=== PATIENT | male | born 1955 | race Caucasian/White ===

== ENCOUNTER → 2020-12-31 | Outpatient (CLI) | payer BC ==
[~2020-12-31] MED LIST: CATHETER FLUSH 10 ML SYR IV PRN; HOLD METFORMIN - RECEIVED CONTRAST 20 ML VIAL IV SCH; IOHEXOL 350 MG/ML 100 ML (OMNIPAQUE 350) VIAL IV ONE; NS 100 ML (IVPB) BAG IV ONE
--- NOTE | 2020-12-31 10:15 | Diagnostic Imaging Report ---
PROCEDURE: CT abdomen with and without contrast. TECHNIQUE: Multiple contiguous axial CT images of the abdomen were obtained prior to and after intravenous administration of iodinated contrast. Auto Exposure Controls were utilized during the CT exam to meet ALARA standards for radiation dose reduction. INDICATION: Mass of the left upper abdominal quadrant. COMPARISON: None FINDINGS: Included portions of the lung bases show juxtapleural nodule in the posterior lateral left lower lobe that measures 1 x 0.5 cm. There is also suggestion of partially visualized subcarinal adenopathy. CT ABDOMEN: Radiopaque marker was placed in the anterior left upper abdominal quadrant in the area of palpable concern. This is shown to correspond to massive splenomegaly. Spleen measures 12.6 x 22 x 17.7 cm. No focal splenic lesions are seen. There is diffuse stranding of the mesenteric fat. Small amount of free fluid is also noted within the right pericolic gutter. Several enlarged mesenteric and retroperitoneal lymph nodes are also seen. Largest retroperitoneal lymph node is anterior to the right psoas muscle and measures 3.4 x 1.9 cm. Its margins with the IVC are heavily obscured secondary to stranding of surrounding fat. There is mass compression on the left kidney. Benign-appearing bilateral renal cysts are noted. Otherwise, kidneys have an unremarkable CT appearance. Several small cystic-appearing foci are also noted scattered throughout the liver. Adrenal glands and pancreas have a normal CT appearance. Included small bowel loops are nondistended. Cecum and appendix are not included in the [id number]. There is no loculated fluid collection or free air. Osseous structures show age-related degenerative changes, but no acute appearing abnormalities. No lytic or blastic osseous lesions are seen. IMPRESSION:. 1. Patient's palpable area of concern corresponds to marked splenomegaly. Presence of multiple additional enlarged mesenteric and retroperitoneal lymph nodes is also noted and raises strong concern for lymphoma or other underlying lymphoproliferative process. 2. Trace amount of ascites. 3. Juxtapleural nodule of the posterior lateral left lower lobe. Called and faxed to Dr. Issa Villegas at 2:12 p.m. by tracy. Dictated by: Dictated on workstation # [id number]
== END ==
LOC: RAD 07:45
PROVIDERS: ATTEND Family Medicine
DX: R19.02 Left upper quadrant abdominal swelling, mass and lump (principal); R91.1 Solitary pulmonary nodule; R59.0 Localized enlarged lymph nodes
CPT/HCPCS: 74170

== ENCOUNTER → 2021-02-22 | Outpatient (CLI) | payer BC | LOC: CARD 08:30 | DX: I34.0 Nonrheumatic mitral (valve) insufficiency (principal); I51.7 Cardiomegaly; J90 Pleural effusion, not elsewhere classified; C83.38 Diffuse large B-cell lymphoma, lymph nodes of multiple sites | CPT/HCPCS: 93306 ==

== ENCOUNTER → 2021-06-19 | Outpatient (CLI) | payer BC, OTHER | LOC: CARD 08:30 | PROVIDERS: ATTEND Internal Medicine Hematology & Oncology | DX: C83.38 Diffuse large B-cell lymphoma, lymph nodes of multiple sites (principal) | CPT/HCPCS: 93308 ==

== ENCOUNTER → 2021-08-20 | Outpatient (CLI) | payer MEDICARE, OTHER ==
--- NOTE | 2021-08-20 20:10 | Diagnostic Imaging Report ---
INDICATION: Cough EXAMINATION: Two-view chest 08/20/2021 FINDINGS: There is a right-sided chest port unremarkable in appearance. Heart is normal. Pulmonary vasculature slightly prominent. There is scattered atelectasis in the lower lungs. No infiltrates or effusions. No pneumothorax. IMPRESSION: 1. Bibasilar atelectasis versus scar. 2. Mild prominence of the perihilar regions which could be due to mild pulmonary vascular congestion versus pulmonary hypertension. Adenopathy not excluded. Dictated by: Dictated on workstation # [id number]
== END ==
LOC: RAD 15:59
PROVIDERS: ATTEND Internal Medicine Hematology & Oncology
DX: C83.38 Diffuse large B-cell lymphoma, lymph nodes of multiple sites (principal)
CPT/HCPCS: 71046

== ENCOUNTER 2023-03-21 18:19 | Inpatient (IN) | payer MEDICARE, OTHER ==
[2023-03-21] VITALS (8 sets, daily range): BP systolic 80–105; BP diastolic 53–67
[~2023-03-21] VITALS: Ht 167.7 cm; Wt 88.9 kg
--- NOTE | 2023-03-21 18:42 | ED Respiratory ---
General Chief Complaint: Respiratory Problems Stated Complaint: SOA Source: patient Exam Limitations: no limitations History of Present Illness Date Seen by Provider: Mar 21, 2023 Time Seen by Provider: 18:42 Initial Comments Patient is a 67-year-old male who presents to the emergency department chief complaint shortness of breath, increased cough productive of sputum over the last week. He had COVID about 5 weeks ago. He states his symptoms lasted about 2 weeks. About 10 days ago he started becoming symptomatic again with shortness of breath. He has a remote smoking history has not smoked in many years. He was seen at his primary care physician's office on Thursday of last week and then urgent care on Thursday. Started on double coverage antibiotics on Thursday. Has continued to have worsening shortness of breath. Presented with oxygen saturations in the upper 60s. His son who is a Rheumatology Nurse nurse states that they identified a right lower lobe pneumonia on Thursday. He does not require the use of home oxygen. He does have a history of lymphoma 4 years ago that is in remission. He also takes medication for essential tremors. He normally walks 2 to 4 miles daily and was barely able to make it to the backyard today secondary to his shortness of breath. He states that he was up and quite active throughout his COVID illness. No history of blood clot, DVT, PE. Is not currently on blood thinners. Presents with a 102 fever as well as heart rate 110-120 Timing/Duration: week, getting worse Severity: severe Prior Episodes/Possible Cause: unknown cause Modifying Factors: Worse With Activity; Improves With Oxygen, Improves With Rest Associated Symptoms: cough, fever/chills, shortness of breath Allergies and Home Medications Allergies Coded Allergies: naproxen (Verified Allergy, Unknown, 03/21/23) Patient Home Medication List Home Medication List Reviewed: Yes Propranolol HCl (Propranolol HCl) 40 Mg Tablet, 40 MG PO DAILY, (Reported) Entered as Reported by: RADHA MORALES on 03/22/23 172 Last Action: New Order Review of Systems Review of Systems Constitutional: see HPI, fever EENTM: no symptoms reported Respiratory: cough, short of breath Cardiovascular: no symptoms reported Gastrointestinal: no symptoms reported Genitourinary: no symptoms reported Musculoskeletal: no symptoms reported Skin: no symptoms reported Psychiatric/Neurological: No Symptoms Reported All Other Systems Reviewed Negative Unless Noted: Yes Past Lakvwbc-Idqkfv-Hkevkc Hx Patient Social History Tobacco Use?: No Use of E-Cig and/or Vaping dev: No Substance use?: No Alcohol Use?: No Pt feels they are or have been: No Physical Exam Vital Signs - First Documented Capillary Refill : Height: '" Weight: lbs. oz. kg; BMI Method: General Appearance: WD/WN, no apparent distress Eyes: Bilateral Eye Normal Inspection, Bilateral Eye PERRL, Bilateral Eye EOMI HEENT: PERRL/EOMI, other (moist oral mucosa) Neck: full range of motion, supple Respiratory: no respiratory distress, no accessory muscle use, wheezing (exp wheeze left posterior - really overall good air movement. He has 97% sats on supplemental oxygen) Cardiovascular: regular rate, rhythm, tachycardia Gastrointestinal: non tender, soft Extremities: non-tender, normal inspection, no pedal edema Neurologic/Psychiatric: alert, normal mood/affect, oriented x 3 Skin: normal color, warm/dry Focused Exam Lactate Level 03/21/23 18:33: Lactic Acid Level 1.34 Lactic Acid Level Laboratory Tests Test 03/21/23 18:33 Lactic Acid Level 1.34 MMOL/L (0.50-2.00) Progress/Results/Core Measures Suspected Sepsis SIRS Temperature: Pulse: Respiratory Rate: Laboratory Tests 03/21/23 18:33: White Blood Count 2.3L Blood Pressure / Mean: 03/21/23 18:33: Lactic Acid Level 1.34 Laboratory Tests 03/21/23 18:33: Creatinine 0.88, INR Comment 1.0, Platelet Count 100L, Total Bilirubin 0.7 Results/Orders Lab Results Laboratory Tests Test 03/21/23 18:33 03/21/23 18:41 03/21/23 19:27 03/21/23 20:08 Range/Units White Blood Count 2.3 L 4.3-11.0 10^3/uL Red Blood Count 3.27 L 4.30-5.52 10^6/uL Hemoglobin 10.1 L 13.3-17.7 g/dL Hematocrit 30 L 40-54 % Mean Corpuscular Volume 93 80-99 fL Mean Corpuscular Hemoglobin 31 25-34 pg Mean Corpuscular Hemoglobin Concent 33 32-36 g/dL Red Cell Distribution Width 14.4 10.0-14.5 % Platelet Count 100 L 130-400 10^3/uL Mean Platelet Volume 10.5 9.0-12.2 fL Immature Granulocyte % (Auto) 4 % Neutrophils (%) (Auto) 57 42-75 % Lymphocytes (%) (Auto) 30 12-44 % Monocytes (%) (Auto) 9 0-12 % Eosinophils (%) (Auto) 0 0-10 % Basophils (%) (Auto) 0 0-10 % Neutrophils # (Auto) 1.3 L 1.8-7.8 10^3/uL Lymphocytes # (Auto) 0.7 L 1.0-4.0 10^3/uL Monocytes # (Auto) 0.2 0.0-1.0 10^3/uL Eosinophils # (Auto) 0.0 0.0-0.3 10^3/uL Basophils # (Auto) 0.0 0.0-0.1 10^3/uL Immature Granulocyte # (Auto) 0.1 0.0-0.1 10^3/uL Percent Immature Platelet Fraction 3.4 0.0-7.6 % Prothrombin Time 13.8 12.2-14.7 SEC INR Comment 1.0 0.8-1.4 Activated Partial Thromboplast Time 30 24-35 SEC Sodium Level 135 135-145 MMOL/L Potassium Level 3.4 L 3.6-5.0 MMOL/L Chloride Level 99 98-107 MMOL/L Carbon Dioxide Level 22 21-32 MMOL/L Anion Gap 14 5-14 MMOL/L Blood Urea Nitrogen 12 7-18 MG/DL Creatinine 0.88 0.60-1.30 MG/DL Estimat Glomerular Filtration Rate 94 BUN/Creatinine Ratio 14 Glucose Level 104 70-105 MG/DL Lactic Acid Level 1.34 0.50-2.00 MMOL/L Calcium Level 8.4 L 8.5-10.1 MG/DL Corrected Calcium 8.6 8.5-10.1 MG/DL Total Bilirubin 0.7 0.1-1.0 MG/DL Aspartate Amino Transf (AST/SGOT) 26 5-34 U/L Alanine Aminotransferase (ALT/SGPT) 30 0-55 U/L Alkaline Phosphatase 96 40-136 U/L Total Protein 6.5 6.4-8.2 GM/DL Albumin 3.7 3.2-4.5 GM/DL Smear Scan YES Influenza Type A (RT-PCR) Not Detected Not Detecte Influenza Type B (RT-PCR) Not Detected Not Detecte SARS-CoV-2 RNA (RT-PCR) Detected H Not Detecte D-Dimer 1.04 H 0.00-0.49 UG/ML Micro Results Microbiology 03/21/23 Blood Culture - Preliminary, Resulted 03/21/23 Blood Culture - Preliminary, Resulted My Orders Orders - FORD HOBSON MD Cbc And Automated Diff (03/21/23 18:38) Comprehensive Metabolic Panel (03/21/23 18:38) Blood Culture (03/21/23 18:38) Sputum Culture (03/21/23 18:38) Urinalysis (03/21/23 18:38) Urine Culture (03/21/23 18:38) Protime With Inr (03/21/23 18:38) Partial Thromboplastin Time (03/21/23 18:38) Chest 1 View, Ap/Pa Only (03/21/23 18:38) Ed Iv/Invasive Line Start (03/21/23 18:38) Ed Iv/Invasive Line Start (03/21/23 18:38) Vital Signs Adult Sepsis Patie Q15M (03/21/23 18:38) O2 (03/21/23 18:38) Remove Rings In Anticipation O (03/21/23 18:38) Lactic Acid Analyzer (03/21/23 18:38) Influenza A And B By Pcr (03/21/23 19:03) Ns Iv 1000 Ml (Ns Iv 1000 Ml) (03/21/23 19:15) Acetaminophen Tablet (Acetaminophen Ta (03/21/23 19:15) Albuterol Hfa Inhaler (Albuterol Hfa Inh (03/21/23 19:08) Covid 19 Inhouse Test (03/21/23 19:08) Piperacillin/Tazobactam (Piperacillin/Ta (03/21/23 20:15) Vancomycin Injection (Vancomycin Injecti (03/21/23 20:15) Ed Admission (Communication) (03/21/23 20:12) Medications Given in ED Vital Signs/I&O 03/21/23 03/21/23 03/21/23 03/21/23 18:24 18:24 19:14 19:58 Temp 39.0 39.0 38.9 Pulse 101 103 Resp 25 18 B/P (MAP) 136/84 (101) 120/70 (87) Pulse Ox 95 98 O2 Delivery Nasal Cannula Nasal Cannula Nasal Cannula O2 Flow Rate 5.00 5.00 5.00 03/21/23 20:31 Temp 38.8 Pulse 104 Resp 16 B/P (MAP) 110/66 Pulse Ox 96 O2 Delivery Nasal Cannula O2 Flow Rate 5.00 Capillary Refill : Progress Note : Time: 20:00 Progress Note Patient seen and evaluated by me. Evaluation today includes "sepsis protocol" to include CBC, Chem-12, blood cultures x2, lactic acid, coag profile, flu and COVID test, urinalysis, single view chest x-ray. Pertinent physical exam findings well-developed well-nourished male in no acute distress. He is febrile on arrival with a temperature of 39 C, blood pressure 138/84, slightly tachycardic with a heart rate of 101 increased respiratory rate at 25 and room a ir hypoxia in the upper 60s. He has occasional scattered expiratory wheeze seemingly more left-sided than right-sided. No lower extremity edema. Heart is regular, abdomen is soft. Neuro is nonfocal. Differential diagnosis includes sepsis, pneumonia, dehydration, urinary tract infection, viral syndrome Labs, imaging independently reviewed and interpreted by me. He is pancytopenic with a total white blood cell count of 2.3, hemoglobin of 10.1, hematocrit of 30, platelet count of 100. His coags are normal. Chemistry remarkable for a slightly decreased potassium at 3.4. Lactic acid is 1.34. COVID test remains positive, flu is negative. Urinalysis does not reveal any signs of infection. His chest x-ray shows possible bibasilar infiltrates versus atelectasis. Patient is treated in the emergency department with normal saline, he is given Tylenol for fever. Oxygen supplementation at 5 L per nasal cannula to raise his oxygen sats to 96, 97%. In light of pancytopenia, history of lymphoma antibiotics initiated, Zosyn and vancomycin. Case was discussed with Dr. Mcintosh on for Dr Stockton. Will admit to Cardiac Stepdown, IP. Diagnostic Imaging Diagonstic Imaging: Xray Plain Films/CT/US/NM/MRI: chest Comments [facility]. [place], [place] NAME: SHANELLE HERNANDEZ [facility] REC#: [id number] PT STATUS: REG ER : 1955 PHYSICIAN: FORD HOBSON MD ADMIT DATE: 03/21/23/ER Signed Date of Exam:03/21/23 CHEST 1 VIEW, AP/PA ONLY Indication: Shortness of breath, hypoxia Frontal chest obtained at 7:00 hours p.m. compared to 08/20/2021 There is cardiomegaly. Pacemaker is unchanged. There is some minimal atelectatic change or infiltrate in the right base. Lungs are otherwise clear. There is no pneumothorax or pleural fluid. IMPRESSION: Mild cardiomegaly. There is some minimal infiltrate versus atelectasis in the right base. There is no other significant finding. Dictated by: Dictated on workstation # [id number] Dict: 03/21/231905 Trans: 03/21/231919 [facility] [id number] Interpreted by: SANDRA BONILLA MD Electronically signed by: SANDRA BONILLA MD 03/21/231919 Departure Communication (Admissions) Time/Spoke to Admitting Phy: 20:[address] Mcintosh on for [facility] service (hospitalist) Impression Primary Impression: Pneumonia Qualified Codes: J18.9 - Pneumonia, unspecified organism Additional Impression: Pancytopenia Disposition: ADMITTED INPATIENT Condition: Stable Admissions Decision to Admit Reason: Admit from ER (General) Decision to Admit/Date: Mar 21, 2023 Time/Decision to Admit Time: 20:12 Departure-Patient Inst. Referrals: VIVIEN STOCKTON MD (PCP/Family) Primary Care Physician Copy Copies To 1: VIVIEN STOCKTON MD, KATHRYN M MD Mar 21, 2023 18:42
[2023-03-21 18:45] LABS: BASOPHILS % (AUTO) 0 % (0-10); EOSINOPHILS % (AUTO) 0 % (0-10); HEMATOCRIT 30 % (40-54); HEMOGLOBIN 10.1 g/dL (13.3-17.7); MEAN CORPUSCULAR HEMOGLOBIN 31 pg (25-34); MEAN CORPUSCULAR HGB CONC 33 g/dL (32-36); MEAN CORPUSCULAR VOLUME 93 fL (80-99)
[2023-03-21 18:47] LABS: LYMPHOCYTES # (AUTO) 0.7 10^3/uL (1.0-4.0); LYMPHOCYTES % (AUTO) 30 % (12-44); MEAN PLATELET VOLUME 10.5 fL (9.0-12.2); MONOCYTES # (AUTO) 0.2 10^3/uL (0.0-1.0); MONOCYTES % (AUTO) 9 % (0-12); NEUTROPHILS # (AUTO) 1.3 10^3/uL (1.8-7.8); NEUTROPHILS % (AUTO) 57 % (42-75); PLATELET COUNT 100 10^3/uL (130-400); WHITE BLOOD COUNT 2.3 10^3/uL (4.3-11.0)
[2023-03-21 18:52] LABS: SMEAR SCAN COMMENT YES
[2023-03-21 18:54] LABS: ALBUMIN 3.7 GM/DL (3.2-4.5); POTASSIUM 3.4 MMOL/L (3.6-5.0)
[2023-03-21 18:56] LABS: CALCIUM 8.4 MG/DL (8.5-10.1)
[2023-03-21 18:57] LABS: TOTAL PROTEIN 6.5 GM/DL (6.4-8.2)
[2023-03-21 18:58] LABS: BILIRUBIN,TOTAL 0.7 MG/DL (0.1-1.0)
[2023-03-21 18:59] LABS: PROTHROMBIN TIME PATIENT 13.8 SEC (12.2-14.7)
[2023-03-21 19:00] LABS: CREATININE SERUM 0.88 MG/DL (0.60-1.30)
[2023-03-21] MEDS ORDERED: RT-ALBUTEROL HFA 8.5 GM INHALER IH STA (19:08)
[2023-03-21] MEDS ORDERED: ACETAMINOPHEN 500 MG TABLET PO ONE (19:15)
[2023-03-21] MEDS ORDERED: NS IV 1000 ML 1,000 ML IV SCH (19:15)
--- NOTE | 2023-03-21 19:16 | Diagnostic Imaging Report ---
Indication: Shortness of breath, hypoxia Frontal chest obtained at 7:00 hours p.m. compared to 08/20/2021 There is cardiomegaly. Pacemaker is unchanged. There is some minimal atelectatic change or infiltrate in the right base. Lungs are otherwise clear. There is no pneumothorax or pleural fluid. IMPRESSION: Mild cardiomegaly. There is some minimal infiltrate versus atelectasis in the right base. There is no other significant finding. Dictated by: Dictated on workstation # [id number]
[2023-03-21] MEDS ORDERED: VANCOMYCIN INJECTION 1,000 MG in NS (IVPB) 250 ML 250 ML IV ONE (20:15)
[2023-03-21] MEDS ORDERED: PIPERACILLIN/Tazobactam 4.5 GM in NS (IVPB) 100 ML 100 ML IV ONE (20:15)
[2023-03-21] MEDS ORDERED: VANCOMYCIN INJECTION 0.1 MG in NS (IVPB) 250 ML 250 ML IV SCH (21:15)
[2023-03-21] MEDS ORDERED: MILK OF MAGNESIA 400 MG/5 ML 30 ML UDC PO PRN (21:15)
[2023-03-21] MEDS ORDERED: BENZONATATE 100 MG CAPSULE PO PRN (21:15)
[2023-03-21] MEDS ORDERED: ONDANSETRON INJECTION 4 MG/2 ML (SDV) IV PRN (21:15)
[2023-03-21] MEDS ORDERED: MELATONIN 3 MG TABLET PO PRN (21:15)
[2023-03-21] MEDS ORDERED: dexAMETHasone INJ 4 MG/ML SDV IV ONE (21:30)
[2023-03-21] MEDS: NS IV 1000 ML 1,000 ML IV SCH (21:50)
[2023-03-21 22:38] LABS: CLARITY,URINE CLEAR; COLOR,URINE YELLOW
[2023-03-21 22:39] LABS: AMORPHOUS SEDIMENT,UR RARE AMOR URATES /LPF; BACTERIA,URINE NEGATIVE /HPF; BILIRUBIN,URINE NEGATIVE (NEGATIVE); GLUCOSE, URINE (UA) NEGATIVE (NEGATIVE); KETONES,URINE TRACE (NEGATIVE); LEUKOCYTE ESTERASE ,URINE NEGATIVE (NEGATIVE); NITRITE,URINE NEGATIVE (NEGATIVE); PROTEIN,URINE 2+ (NEGATIVE); RBC,URINE 0-2 /HPF; SQUAMOUS EPITHELIAL CELL,UR RARE /HPF
--- NOTE | 2023-03-21 23:16 | Tele-ICU Progress Note ---
Progress Note 67M with h/o lymphoma in remission admitted with pneumonia, COVID, hypoxia. Patient reportedly had COVID 5 weeks ago. He did well and remained active through the course. He improved, but had recurrence of SOB about 10 days ago. He went to his PCP last week and was found to have a RLL consolidation and started on azithromycin. Today he presented to ED with progressive SOB, found to have SpO2 in the 60s on RA. Improved to mid-90s with 5L NC. Has otherwise been HD stable. A/P: - sepsis: secondary to pneumonia. Possibly COVID with bacterial co-infection. Cultures pending. Initiated on zosyn and vanco. - COVID: given hypoxia will initiate on decadron. - pancytopenia: no prior or recent labs in the system. Baseline unknown. Could be secondary to sepsis vs BM supression secondary to sequelae of chemo. Will trend. Obtain prior labs in AM. Patient assessed via real time audiovisual communication system. CCT7 minutes Focused Exam Lactate Level 03/21/23 18:33: Lactic Acid Level 1.34 Height, Weight, BMI Height: '" Weight: lbs. oz. kg; 31.36 BMI Method: MIKHAIL HE MD Mar 21, 2023 23:15
[2023-03-22] VITALS (12 sets, daily range): BP systolic 91–123; BP diastolic 56–79
[2023-03-22] MEDS ORDERED: VANCOMYCIN 750 MG/NS 250 ML IVPB IV ONE ×2
[2023-03-22] MEDS ORDERED: NS IV 1000 ML 1,000 ML IV SCH (01:30)
[2023-03-22] MEDS: PIPERACILLIN/Tazobactam 4.5 GM in NS (IVPB) 100 ML 100 ML IV SCH ×3 (01:37→17:20)
[2023-03-22] MEDS: NS IV 1000 ML 1,000 ML IV SCH ×2 (05:10→10:35)
[2023-03-22 06:05] LABS: EOSINOPHILS % (AUTO) 0 % (0-10); HEMOGLOBIN 8.5 g/dL (13.3-17.7); LYMPHOCYTES % (AUTO) 19 % (12-44)
[2023-03-22 06:08] LABS: BASOPHILS % (AUTO) 1 % (0-10); HEMATOCRIT 26 % (40-54); LYMPHOCYTES # (AUTO) 0.2 10^3/uL (1.0-4.0); MEAN CORPUSCULAR HEMOGLOBIN 31 pg (25-34); MEAN CORPUSCULAR HGB CONC 33 g/dL (32-36); MEAN CORPUSCULAR VOLUME 94 fL (80-99); MEAN PLATELET VOLUME 10.5 fL (9.0-12.2); MONOCYTES # (AUTO) 0.1 10^3/uL (0.0-1.0); MONOCYTES % (AUTO) 6 % (0-12); NEUTROPHILS # (AUTO) 0.6 10^3/uL (1.8-7.8); NEUTROPHILS % (AUTO) 67 % (42-75); PLATELET COUNT 82 10^3/uL (130-400)
[2023-03-22 06:24] LABS: ALBUMIN 3.2 GM/DL (3.2-4.5); BILIRUBIN,TOTAL 0.4 MG/DL (0.1-1.0); CALCIUM 7.8 MG/DL (8.5-10.1); CREATININE SERUM 0.79 MG/DL (0.60-1.30); TOTAL PROTEIN 5.2 GM/DL (6.4-8.2)
[2023-03-22 07:07] LABS: SMEAR SCAN COMMENT YES
[2023-03-22] MEDS ORDERED: FLU HIGH DOSE (65+ YOA) 240 MCG/0.7 ML 2023-24 (FLUZONE) IM ONE (07:15)
--- NOTE | 2023-03-22 09:38 | History & Physical-Hospitalist ---
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 He reports that he had COVID about 5 weeks ago and had actually done relatively well with it but over the past few days has started to feel worse. His son who is a nurse here checked his oxygen saturation and found it to be in the upper 60s prompting him to seek evaluation in the emergency department. Last week as an outpatient he had been diagnosed with a right lower lobe pneumonia and started on Augmentin but did not require oxygen at that time. He was found to meet sepsis criteria and blood pressures were marginal so he was admitted to the ICU. This morning her reports feeling better. He is still testing COVID-positive and we did discuss potential treatment with Paxlovid given his history of being on rituximab but he declines this. He states he is ready about hepatic side effects from Paxlovid and he would prefer not to take it. Source: patient Date Seen 03/22/23 Time Seen by a Provider: 09:38 Attending Physician Issa Villegas MD PCP Admitting Physician: Lydia Mcintosh MD Attending Physician: Lydia Mcintosh MD Referring Physician Date of Admission Mar 21, 2023 at 20:34 Home Medications & Allergies Home Medications Reviewed patient Home Medication Reconciliation performed by pharmacy medication reconciliations process controls technician and/or nursing. Patients Allergies have been reviewed. Allergies Allergies Coded Allergies naproxen (Verified Allergy, Unknown, 03/21/23) Past Omnoqqc-Oaxydq-Gioxdr Hx Patient Social History Marrital Status: Tobacco Use?: No Smoking Status: Former Smoker Use of E-Cig and/or Vaping dev: No Substance use?: No Alcohol Use?: No Pt feels they are or have been: No Immunizations Up To Date Tetanus Booster (TDap): Unknown Hepatitis A: No Hepatitis B: No Current Status Advance Directives: Yes Advance Directive Location: Home Communicates: Verbally Primary Language: Tamazight Preferred Spoken Language: Tamazight Is interpretation needed?: No Sensory deficits: Vision impairment Implanted or Applied Medical D: Port-a-cath Past Medical History Lymphoma Did You Recieve Any Treatments: Yes What Type of Treatment Did You: Other (BMT) Review of Systems Constitutional: see HPI Physical Exam Physical Exam Vital Signs Vital Signs - First Documented Capillary Refill : Less Than 3 Seconds Height, Weight, BMI Height: '" Weight: lbs. oz. kg; 31.29 BMI Method: General Appearance: No Apparent Distress, WD/WN Respiratory: Lungs Clear, No Respiratory Distress Cardiovascular: Regular Rate, Rhythm, No Murmur Gastrointestinal: Normal Bowel Sounds, Non Tender, Soft Extremity: No Calf Tenderness, No Pedal Edema, Other (tremors noted ) Neurologic/Psychiatric: Alert, Oriented x3, Normal Mood/Affect Results Results/Procedures Labs Laboratory Tests 03/21/23 18:33 03/22/23 04:52 Patient resulted labs reviewed. Imaging: Reviewed Imaging Report Imaging [facility]. [place], [place] NAME: SHANELLE HERNANDEZ [facility] REC#: [id number] PT STATUS: REG ER : 1955 PHYSICIAN: FORD HOBSON MD ADMIT DATE: 03/21/23/ER Signed Date of Exam:03/21/23 CHEST 1 VIEW, AP/PA ONLY Indication: Shortness of breath, hypoxia Frontal chest obtained at 7:00 hours p.m. compared to 08/20/2021 There is cardiomegaly. Pacemaker is unchanged. There is some minimal atelectatic change or infiltrate in the right base. Lungs are otherwise clear. There is no pneumothorax or pleural fluid. IMPRESSION: Mild cardiomegaly. There is some minimal infiltrate versus atelectasis in the right base. There is no other significant finding. Dictated by: Dictated on workstation # [id number] Dict: 03/21/231905 Trans: 03/21/231919 [facility] [id number] Interpreted by: SANDRA BONILLA MD Electronically signed by: SANDRA BONILLA MD 03/21/231919 Assessment/Plan Admission Diagnosis Severe Sepsis Admission Status: Inpatient Order (span 2 midnights) Reason for Inpatient Admission: see below Assessment and Plan Severe Sepsis Acute hypoxic respiratory failure Pancytopenia h/o Lymphoma s/p BMT COVID Continue IV abx Pt declines paxlovid Await cultures Discussed with Dr Mcallister, appreciate recs Try to get records from regarding most recent labs and BMT note Unsure if pancytopenia is new and if from BMT, retuximab or COVID May ultimately need transfer to [facility] if new given relatively recent BMT LYDIA MCINTOSH MD Mar 22, 2023 09:38
[2023-03-22] MEDS: VANCOMYCIN 1 GM/NS 250 ML IVPB IV SCH ×4 (10:12→21:27)
--- NOTE | 2023-03-22 10:57 | Tele-ICU Progress Note ---
Subjective Date Seen by a Provider: Mar 22, 2023 Time Seen by a Provider: 10:56 Subjective/Events-last exam (Tele-ICU Physician , Progress Note ) Service provided via interactive audio and video telecommunications E-CARE system to a patient admitted to ICU bed in [facility]. Patient is seen today due to persistent need of ICU care Available chart/ vitals / labs / Images reviewed Video assessment done using teleICU camera, rest of exam as per RN Discussed with RN Events overnight : Afebrile hemodynamically stable Respiratory - 4 L I/O = Drips: ns 150 Pressors- no Hospital course: 03/21- 67M with h/o lymphoma in remission admitted with pneumonia, COVID, hypoxia. A/P: - sepsis: - ? small pneumonia. Possibly COVID with bacterial co-infection. Cultures pending. Initiated on zosyn and vanco. - COVID: given hypoxia cont decadrone - to reassess - pancytopenia: no prior or recent labs in the system. Baseline unknown. Could be secondary to sepsis vs BM supression secondary to sequelae of chemo. Will trend. oncology consulted Lines : right port - NOT WORKING , (Central Line Necessity Reviewed) Baldwin: void OG: Nutrition: po Analgesia: Anxiety/ delirium VTE Prophylaxis: scd , PLT low - monitor Stress Ulcer Prophylaxis: Plans in collaboration with bedside consultants and IM MDs. Discussed with RN to reach out if any questions or concerns Case and care daily discussed on multidisciplinary rounds ( RN, PharmD, Tool Designer Apprentice , Respiratory Therapy, sheltered workshop worker ) A total of 15 minutes of critical care time was devoted to this patient today, required to treat and/or prevent further deterioration of critical care condition ( as above ) . I am remotely monitoring this patient from another state. I am unable to do the bedside exam, and history/physical and pertinent information is taken from other notes in the computer and bedside staff. Sepsis Event Evaluation Height, Weight, BMI Height: '" Weight: lbs. oz. kg; 31.29 BMI Method: Focused Exam Lactate Level 03/21/23 18:33: Lactic Acid Level 1.34 Exam Exam Patient acknowledged, consented, and participated in this virtual visit which was conducted using real time audio/video Vital Signs Date Time Temp Pulse Resp B/P (MAP) Pulse Ox O2 Delivery O2 Flow Rate FiO2 03/22/23 08:00 61 20 105/68 (80) 94 Nasal Cannula 2.00 03/22/23 07:00 66 26 94/64 (74) 93 Nasal Cannula 2.00 03/22/23 07:00 65 03/22/23 06:00 62 26 101/63 (76) 94 Nasal Cannula 2.00 03/22/23 05:00 80 20 100/79 (86) 96 Nasal Cannula 2.00 03/22/23 04:00 36.4 66 24 91/57 (68) 96 Nasal Cannula 2.00 03/22/23 03:00 68 20 96/59 (71) 96 Nasal Cannula 2.00 03/22/23 02:00 72 18 95/63 (74) 97 Nasal Cannula 2.00 03/22/23 01:00 73 26 93/59 (70) 95 Nasal Cannula 2.00 03/22/23 00:33 70 03/22/23 00:00 73 19 93/56 (68) 95 Nasal Cannula 2.00 03/21/23 23:14 36.8 03/21/23 23:00 77 22 94/58 (70) 94 Nasal Cannula 2.00 03/21/23 22:45 78 20 92/56 (68) 94 Nasal Cannula 2.00 03/21/23 22:00 94 12 80/59 (66) 95 Nasal Cannula 2.00 03/21/23 21:55 Nasal Cannula 2.00 03/21/23 21:45 92 14 85/58 (67) 96 Nasal Cannula 3.00 03/21/23 21:32 97 Nasal Cannula 3.00 03/21/23 21:30 103 14 91/67 (75) 96 Nasal Cannula 3.00 03/21/23 21:22 Nasal Cannula 3.00 03/21/23 21:15 93 22 86/53 (64) 96 Nasal Cannula 4.00 03/21/23 21:02 36.7 03/21/23 21:00 99 03/21/23 21:00 94 20 105/58 (74) 97 Nasal Cannula 4.00 03/21/23 20:48 36.7 99 22 102/66 (78) 96 Nasal Cannula 5.00 03/21/23 20:31 38.8 104 16 110/66 96 Nasal Cannula 5.00 03/21/23 19:58 38.9 103 18 120/70 (87) 98 Nasal Cannula 5.00 03/21/23 19:14 39.0 03/21/23 18:24 Nasal Cannula 5.00 03/21/23 18:24 39.0 101 25 136/84 (101) 95 Nasal Cannula 5.00 I & O 03/22/23 07:00 Intake Total 4150 ml Output Total 2350 ml Balance 1800 ml Height & Weight Height: '" Weight: lbs. oz. kg; 31.29 BMI Method: General Appearance: Other Capillary Refill: Less Than 3 Seconds Gastrointestinal: non tender, soft Results Lab Laboratory Tests 03/21/23 18:33 03/22/23 04:52 Assessment/Plan Assessment/Plan 1 MEET SHEA MD Mar 22, 2023 10:57
--- NOTE | 2023-03-22 12:21 | CONSULTATION REPORT ---
DATE OF SERVICE: 03/22/2023 The patient is admitted to ICU bed 3. PHYSICIAN REQUESTING CONSULTATION: Evy Mcintosh MD PRIMARY PHYSICIAN: Issa Villegas M.D. HISTORY OF PRESENT ILLNESS: The patient is a 67-year-old male who was admitted to the hospital with increasing shortness of breath and hypoxia. The patient had history of lymphoma diagnosed 3-4 years ago and was on chemotherapy. He underwent an autologous bone marrow transplantation at [facility] approximately a year ago and is recovering. He had completed his routine vaccine screen over the last 6 months. Approximately 5 weeks ago, he was diagnosed with COVID-19 and recovered. Approximately 3 weeks ago, he started becoming more short of breath and had an urgent care visit as well as a visit with his primary physician over the last week and was on outpatient antibiotics. He presented to the emergency room yesterday with hypoxia and evidence of a right lower lobe infiltrate and was admitted to the hospital. Repeat lab work done today showed significant neutropenia and worsening pancytopenia. Because of this, hematology consult was requested. Today, he is feeling better and breathing better. He has not been febrile since admission. His appetite is fair. He was unable to give details of his diagnosis of treatment. I have attempted to contact his primary oncologist in [place], but have not heard back. His appetite is fair. No diarrhea, constipation, hematochezia or melena. No chest pain, palpitations, orthopnea, or PND. He has benign tremors, which has been chronic. PAST MEDICAL HISTORY: Significant for prostate cancer diagnosed approximately 10 years ago and underwent prostatectomy. Routine PSA screening has been undetectable according to the patient. History of lymphoma approximately 3-4 years ago as mentioned in the history of present illness. PRIOR SURGERIES: Include appendectomy in his early teenage years, prostatectomy approximately 10 years ago, and hemorrhoidectomy. SOCIAL HISTORY: The patient is [place]. He has 2 sons, one of whom lives in [place] and the other son in [place]. He had smoked approximately 18 years, averaging 2 packs a day, but quit smoking about 30+ years ago. Uses alcohol socially, but not recently. No history of recreational drug use. He worked in a [employer] for approximately 45 years and retired. During his early years. 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 No other exposure to chemicals, or radiation. FAMILY HISTORY: Only significant for his maternal aunt with colon cancer. Several of his relatives including his father and several cousins have benign tremors. REVIEW OF SYSTEMS: Unremarkable except as mentioned in the history of present illness. PHYSICAL EXAMINATION: GENERAL: Today showed an elderly male, well developed and nourished, awake and answering questions appropriately, in no acute distress. VITAL SIGNS: Temperature today was 36.4, pulse rate of 61, respiratory rate 20, blood pressure 105/68 with oxygen saturation 94% on 2 liters of oxygen by nasal cannula. T-max at the time of admission was 38.8 with pulse rate of 104, respirations 16, and blood pressure 110/66 with oxygen saturation of 96% on 5 liters by nasal cannula. HEENT: Normocephalic with male pattern baldness, extraocular muscles intact, conjunctivae slightly pale, oral mucosa moist, without lesions. NECK: Supple, with no JVD. NODES: No cervical, supraclavicular or axillary lymphadenopathy palpable. CHEST: Symmetrical. LUNGS: Fairly clear to auscultation without wheezes or rales. CARDIOVASCULAR: Regular in rate and rhythm. No murmurs or gallops heard. ABDOMEN: Soft, nontender with no hepatosplenomegaly or other masses palpable. EXTREMITIES: Showed no edema. NEUROLOGIC: Grossly intact without focal motor deficits. The patient has an intermittent tremors of all extremities. CBC done yesterday evening at the time of admission showed WBC 2.3, hemoglobin 10.1, platelet count 100,000 with neutrophil count 1.3, lymphocyte count 0.7 and monocyte count 0.2. Repeat CBC done today morning showed total white count of 1.0. Hemoglobin 8.5 and platelet count 82,000 with a neutrophil count 0.6 and lymphocyte count 0.2. Chemistry panel done today showed relatively normal electrolytes. BUN was 10 and creatinine 0.79 with GFR 97 mL per minute. Nonfasting glucose was 139. Liver function studies are normal. Total protein was 5.2 with albumin 3.2. Protime was 13.8 with INR 1.0, and PTT 30. D-dimer was slightly elevated at 1.04. Urinalysis was unremarkable. Chest x-ray done in the emergency room showed minimal infiltrate versus atelectasis in the right base. IMPRESSION: 1. Febrile illness with grade III neutropenia. 2. History of non-Hodgkin's lymphoma 3-4 years with a BMT 1 year ago. 3. Hypoxia, on initial presentation to the EMS, but improved with oxygen supplements. 4. Covid screen positive RECOMMENDATIONS: 1. Continue broad-spectrum antibiotics as you are doing. Monitor blood counts serially. 2. Start Granix 480 mcg daily until ANC >5000. 3. I have contacted his primary oncologist in [place] with , Shelly Baumann MD by phone as well as a text message. I will update her when she contacts me about the patient's situation and decide if he needs to continue the current regimen or be transferred to the . We will follow the patient with you. CC: Dr. Shelly Baumann at - requested, unable to deliver. Dr. Issa Butcher - requested, unable to deliver. Job ID: [id number] DocumentID: [id number] Dictated Date: 03/22/2023 11:44:34 Hoisting Engine Operator Date: 03/22/2023 12:19:00 Dictated By: XOCHITL RESTREPO MD [facility]
[2023-03-22] MEDS: TBO-FILGRASTIM 480 MCG/0.8 ML (GRANIX) SQ SCH (14:18)
[2023-03-22] MEDS ORDERED: PROP40TA5 PO (17:23)
[2023-03-22] MEDS: RT-ALBUTEROL HFA 8.5 GM INHALER IH SCH ×2 (18:22→22:15)
[2023-03-22] MEDS ORDERED: RT-ALBUTEROL HFA 8.5 GM INHALER IH SCH (20:00)
[2023-03-22] MEDS: ACETAMINOPHEN 325 MG TABLET PO PRN (22:46)
[2023-03-22] MEDS: ANTACID SUSPENSION 30 ML UDC PO PRN (22:50)
[2023-03-23] VITALS (16 sets, daily range): BP systolic 96–128; BP diastolic 59–97
[2023-03-23] MEDS: PIPERACILLIN/Tazobactam 4.5 GM in NS (IVPB) 100 ML 100 ML IV SCH ×3 (01:41→18:19)
[2023-03-23] MEDS: RT-ALBUTEROL HFA 8.5 GM INHALER IH SCH ×6 (03:39→22:45)
[2023-03-23 04:16] LABS: BASOPHILS % (AUTO) 0 % (0-10); MEAN CORPUSCULAR HEMOGLOBIN 31 pg (25-34); MEAN PLATELET VOLUME 10.6 fL (9.0-12.2); MONOCYTES # (AUTO) 0.1 10^3/uL (0.0-1.0)
[2023-03-23 04:19] LABS: EOSINOPHILS % (AUTO) 0 % (0-10); HEMATOCRIT 26 % (40-54); HEMOGLOBIN 8.7 g/dL (13.3-17.7); LYMPHOCYTES # (AUTO) 0.5 10^3/uL (1.0-4.0); LYMPHOCYTES % (AUTO) 18 % (12-44); MEAN CORPUSCULAR HGB CONC 33 g/dL (32-36); MEAN CORPUSCULAR VOLUME 93 fL (80-99); MONOCYTES % (AUTO) 5 % (0-12); NEUTROPHILS # (AUTO) 1.3 10^3/uL (1.8-7.8); NEUTROPHILS % (AUTO) 46 % (42-75); PLATELET COUNT 79 10^3/uL (130-400); WHITE BLOOD COUNT 2.8 10^3/uL (4.3-11.0)
[2023-03-23 04:42] LABS: ALBUMIN 3.1 GM/DL (3.2-4.5); BILIRUBIN,TOTAL 0.5 MG/DL (0.1-1.0); CALCIUM 7.9 MG/DL (8.5-10.1); CREATININE SERUM 0.88 MG/DL (0.60-1.30); POTASSIUM 3.2 MMOL/L (3.6-5.0); TOTAL PROTEIN 5.2 GM/DL (6.4-8.2)
[2023-03-23 04:55] LABS: BAND NEUTROPHILS 20 %; NEUTROPHILS % (MANUAL) 55 %
[2023-03-23 04:56] LABS: LYMPHOCYTES % (MANUAL) 18 %
[2023-03-23 04:59] LABS: METAMYELOCYTES % 3 %; MONOCYTES % (MANUAL) 4 %; RBC MORPH NORMAL
--- NOTE | 2023-03-23 07:26 | Progress Note ---
Subjective Date Seen by a Provider: Mar 23, 2023 Time Seen by a Provider: 06:55 Subjective/Events-last exam patient lying in bed comfortably this morning. He reports he does not feel bad overall. He is concerned about his blood counts. Cough has been present but may be a little better. He did run a fever last night and this was brought down with Tylenol. Focused Exam Lactate Level 03/21/23 18:33: Lactic Acid Level 1.34 Objective Exam Vital Signs Date Time Temp Pulse Resp B/P (MAP) Pulse Ox O2 Delivery O2 Flow Rate FiO2 03/23/23 06:54 109 03/23/23 04:00 36.8 03/23/23 04:00 87 108/59 (75) 96 Nasal Cannula 2.00 03/23/23 03:40 93 4.00 03/23/23 01:00 90 03/23/23 00:00 101 96/74 (81) 96 Nasal Cannula 2.00 03/22/23 23:30 36.6 03/22/23 23:30 36.6 03/22/23 22:46 38.6 03/22/23 22:45 38.3 03/22/23 22:16 96 4.00 03/22/23 21:00 94 Nasal Cannula 4.00 03/22/23 20:00 102 117/71 (86) 96 Nasal Cannula 2.00 03/22/23 20:00 37.3 03/22/23 19:00 108 03/22/23 18:22 96 4.00 03/22/23 16:00 36.7 81 20 116/73 (87) 97 Nasal Cannula 4.00 03/22/23 16:00 79 20 123/70 (87) 93 Nasal Cannula 2.00 03/22/23 13:00 73 03/22/23 12:00 75 20 120/75 (90) 94 Nasal Cannula 2.00 03/22/23 09:00 97 Nasal Cannula 3.00 03/22/23 08:00 61 20 105/68 (80) 94 Nasal Cannula 2.00 I & O 03/23/23 07:00 Intake Total 4400 ml Output Total 1850 ml Balance 2550 ml Capillary Refill : Less Than 3 Seconds General Appearance: No Apparent Distress Respiratory: No Accessory Muscle Use, No Respiratory Distress, Rales (Noted in the right base) Cardiovascular: Regular Rate, Rhythm Gastrointestinal: soft Extremity: No Pedal Edema Neurologic/Psychiatric: Alert, Oriented x3 Skin: Normal Color (May be slightly pale) Results Lab Laboratory Tests 03/23/23 03:51: White Blood Count 2.8L, Red Blood Count 2.81L, Hemoglobin 8.7L, Hematocrit 26L, Mean Corpuscular Volume 93, Mean Corpuscular Hemoglobin 31, Mean Corpuscular Hemoglobin Concent 33, Red Cell Distribution Width 14.8H, Platelet Count 79L, Mean Platelet Volume 10.6, Immature Granulocyte % (Auto) 31, Neutrophils (%) (Auto) 46, Lymphocytes (%) (Auto) 18, Monocytes (%) (Auto) 5, Eosinophils (%) (Auto) 0, Basophils (%) (Auto) 0, Neutrophils # (Auto) 1.3L, Lymphocytes # (Auto) 0.5L, Monocytes # (Auto) 0.1, Eosinophils # (Auto) 0.0, Basophils # (Auto) 0.0, Immature Granulocyte # (Auto) 0.9H, Neutrophils % (Manual) 55, Lymphocytes % (Manual) 18, Monocytes % (Manual) 4, Metamyelocytes % 3, Band Neutrophils 20, Percent Immature Platelet Fraction 3.4, Blood Morphology Comment NORMAL, Sodium Level 139, Potassium Level 3.2L, Chloride Level 106, Carbon Di oxide Level 21, Anion Gap 12, Blood Urea Nitrogen 9, Creatinine 0.88, Estimat Glomerular Filtration Rate 94, BUN/Creatinine Ratio 10, Glucose Level 104, Calcium Level 7.9L, Corrected Calcium 8.6, Total Bilirubin 0.5, Aspartate Amino Transf (AST/SGOT) 19, Alanine Aminotransferase (ALT/SGPT) 38, Alkaline Phosphatase 91, Total Protein 5.2L, Albumin 3.1L Microbiology 03/21/23 Blood Culture - Preliminary, Resulted Assessment/Plan Assessment/Plan Assess & Plan/Chief Complaint 1. Sepsis based upon criteria -receiving IV fluids -Monitoring CBC -blood culture no growth to date 2. Right lower lobe pneumonia -Sputum culture ordered but does not appear to be collected -Receiving gentamicin and piperacillin/taxo -official chest x-ray report pending from this morning 3. Hypoxic -4 L currently nasal cannula 4. Pancytopenia -Monitoring and he is receiving tbo-filgrastim daily 5. Covid 19 -He was concerned about side effects of paxlovid 6. History of lymphoma status post bone marrow transplant -Dr. Mcallister in consultation VIVIEN STOCKTON MD Mar 23, 2023 07:25
[2023-03-23] MEDS ORDERED: TROUGH ORDER-PHARMACY XX NR (09:00)
--- NOTE | 2023-03-23 09:14 | Diagnostic Imaging Report ---
CHEST 1 VIEW, AP/PA ONLY Indication: Followup pulmonary abnormality. Comparison: 03/21/2023 Findings: Stable right IJ Port-A-Cath. Right mid and lower lung zone consolidations. Left basilar band-like opacity increased. No pleural effusion or pneumothorax. Normal heart size. Impression: 1. Worsening of multifocal consolidations in the right lung are suspicious for pneumonia. Dictated by: Dictated on workstation # [id number]
[2023-03-23] MEDS: dexAMETHasone INJ 10 MG/ML 1 ML VIAL IV SCH (10:01)
[2023-03-23] MEDS: VANCOMYCIN 1 GM/NS 250 ML IVPB IV SCH ×4 (10:10→21:48)
[2023-03-23] MEDS: TBO-FILGRASTIM 480 MCG/0.8 ML (GRANIX) SQ SCH (10:15)
[2023-03-23] MEDS: ACETAMINOPHEN 325 MG TABLET PO PRN (10:17)
[2023-03-23 10:23] LABS: ABG BASE EXCESS 0.5 MMOL/L (-2.5-2.5); ABG OXYGEN SATURATION 43 % (94-100); ABG PCO2 36 MMHG (35-45); ABG PH 7.44 (7.37-7.43)
[2023-03-23 10:35] LABS: ABG PO2 37 MMHG (79-93); ALLENS TEST YES-POS
[2023-03-23 10:36] LABS: INSPIRED O2 4; PATIENT TEMP 38.1; VENTILATOR NO
[2023-03-23] MEDS ORDERED: AMOX1TAB12 PO (11:08)
[2023-03-23] MEDS ORDERED: AZIT250T12 PO (11:08)
[2023-03-23] MEDS ORDERED: PROPRANOLOL 20 MG TABLET PO SCH (14:00)
[2023-03-23] MEDS ORDERED: NIRMATRELVIR/RITONAVIR (PAXLOVID) TABLET PO SCH (14:00)
[2023-03-23] MEDS ORDERED: PATIENT MAY USE OWN MED,SINGLE MED PO SCH (15:00)
[2023-03-23] MEDS: NIRMATRELVIR/RITONAVIR (PAXLOVID) TABLET PO SCH ×2 (16:03→21:47)
[2023-03-23] MEDS: ANTACID SUSPENSION 30 ML UDC PO PRN (16:10)
[2023-03-24] VITALS (21 sets, daily range): BP systolic 98–131; BP diastolic 57–97
[2023-03-24] MEDS: PIPERACILLIN/Tazobactam 4.5 GM in NS (IVPB) 100 ML 100 ML IV SCH ×3 (02:57→17:27)
[2023-03-24] MEDS: RT-ALBUTEROL HFA 8.5 GM INHALER IH SCH ×6 (03:12→21:50)
[2023-03-24 04:47] LABS: EOSINOPHILS % (AUTO) 0 % (0-10); HEMOGLOBIN 8.9 g/dL (13.3-17.7); MEAN CORPUSCULAR VOLUME 92 fL (80-99)
[2023-03-24 04:49] LABS: BASOPHILS % (AUTO) 1 % (0-10); HEMATOCRIT 27 % (40-54); LYMPHOCYTES # (AUTO) 0.2 10^3/uL (1.0-4.0); LYMPHOCYTES % (AUTO) 7 % (12-44); MEAN CORPUSCULAR HEMOGLOBIN 31 pg (25-34); MEAN CORPUSCULAR HGB CONC 33 g/dL (32-36); MEAN PLATELET VOLUME 10.6 fL (9.0-12.2); MONOCYTES # (AUTO) 0.2 10^3/uL (0.0-1.0); MONOCYTES % (AUTO) 5 % (0-12); NEUTROPHILS % (AUTO) 60 % (42-75); PLATELET COUNT 74 10^3/uL (130-400); WHITE BLOOD COUNT 3.3 10^3/uL (4.3-11.0)
[2023-03-24 05:11] LABS: ALBUMIN 3.1 GM/DL (3.2-4.5); BILIRUBIN,TOTAL 0.7 MG/DL (0.1-1.0); CALCIUM 8.2 MG/DL (8.5-10.1); CREATININE SERUM 0.77 MG/DL (0.60-1.30); POTASSIUM 3.6 MMOL/L (3.6-5.0); TOTAL PROTEIN 5.4 GM/DL (6.4-8.2)
--- NOTE | 2023-03-24 07:23 | Progress Note ---
Subjective Date Seen by a Provider: Mar 24, 2023 Time Seen by a Provider: 06:45 Subjective/Events-last exam Patient slept fairly well overnight. He did have cough after having breathing treatment. 5 L oxygen placed on him throughout the service inspector. Yesterday he was mostly at 3 L nasal cannula. Currently he admits to feeling fine and has no chest pain. He did sit up in chair yesterday for a little while. Focused Exam Lactate Level 03/21/23 18:33: Lactic Acid Level 1.34 Objective Exam Vital Signs Date Time Temp Pulse Resp B/P (MAP) Pulse Ox O2 Delivery O2 Flow Rate FiO2 03/24/23 06:56 77 03/24/23 06:00 68 31 114/80 (91) 91 Nasal Cannula 5.00 03/24/23 05:00 65 37 119/73 (88) 93 Nasal Cannula 5.00 03/24/23 04:45 Nasal Cannula 5.00 03/24/23 04:00 67 116/72 (87) 95 Nasal Cannula 3.00 03/24/23 03:12 90 Nasal Cannula 3.00 03/24/23 03:00 71 119/70 (86) 92 Nasal Cannula 3.00 03/24/23 02:00 75 119/97 (104) 89 Nasal Cannula 3.00 03/24/23 01:00 64 27 114/69 (84) 91 Nasal Cannula 3.00 03/24/23 00:32 69 03/24/23 00:00 76 33 118/69 (85) 90 Nasal Cannula 3.00 03/23/23 23:00 70 32 103/65 (78) 94 Nasal Cannula 3.00 03/23/23 22:00 70 25 110/67 (81) 91 Nasal Cannula 3.00 03/23/23 21:00 83 27 104/69 (81) 92 Nasal Cannula 3.00 03/23/23 20:10 96 Nasal Cannula 4.00 03/23/23 20:00 86 30 109/71 (84) 91 Nasal Cannula 3.00 03/23/23 19:31 36.3 72 18 116/69 (85) 93 Room Air 03/23/23 19:00 76 16 116/69 (85) 91 Nasal Cannula 3.00 03/23/23 18:59 76 03/23/23 18:42 92 Nasal Cannula 3.00 03/23/23 18:00 70 22 114/71 (85) 94 Nasal Cannula 3.00 03/23/23 17:00 80 35 109/74 (86) 94 Nasal Cannula 3.00 03/23/23 16:00 80 33 111/68 (82) 94 Nasal Cannula 3.00 03/23/23 15:46 Nasal Cannula 3.00 03/23/23 15:37 96 Nasal Cannula 3.00 03/23/23 15:00 77 31 108/67 (81) 96 Nasal Cannula 4.00 03/23/23 14:15 89 22 106/65 (79) 95 Nasal Cannula 4.00 03/23/23 12:16 98 03/23/23 11:00 105 22 128/97 (107) 94 Nasal Cannula 4.00 03/23/23 10:34 94 Nasal Cannula 4.00 03/23/23 10:17 38.1 03/23/23 09:00 104 30 128/69 (88) 95 Nasal Cannula 4.00 03/23/23 09:00 96 Nasal Cannula 4.00 03/23/23 08:00 120 22 123/73 (90) 95 Nasal Cannula 4.00 03/23/23 07:26 93 Nasal Cannula 4.00 I & O 03/24/23 07:00 Intake Total 3340 ml Output Total 3700 ml Balance -360 ml Capillary Refill : Less Than 3 Seconds General Appearance: No Apparent Distress HEENT: Moist Mucous Membranes Neck: Non Tender Respiratory: Rales (In right lower lung and scant on the left side) Cardiovascular: Regular Rate, Rhythm Gastrointestinal: soft Extremity: Normal Capillary Refill Neurologic/Psychiatric: Alert, Oriented x3 Results Lab Laboratory Tests 03/23/23 08:50: Vancomycin Level Trough 10.0 03/23/23 10:15: Blood Gas Puncture Site LEFT RADIAL, Blood Gas Patient Temperature 38.1, Arterial Blood pH 7.44H, Arterial Blood Partial Pressure CO2 36, Arterial Blood Partial Pressure O2 37*L, Arterial Blood HCO3 24, Arterial Blood Total CO2 25.0, Arterial Blood Oxygen Saturation 43L, Arterial Blood Base Excess 0.5, Pastor Test YES-POS, Blood Gas Ventilator Setting NO, Blood Gas Inspired Oxygen 4 03/24/23 04:15: White Blood Count 3.3L, Red Blood Count 2.90L, Hemoglobin 8.9L, Hematocrit 27L, Mean Corpuscular Volume 92, Mean Corpuscular Hemoglobin 31, Mean Corpuscular Hemoglobin Concent 33, Red Cell Distribution Width 15.0H, Platelet Count 74L, Mean Platelet Volume 10.6, Immature Granulocyte % (Auto) 28, Neutrophils (%) (Auto) 60, Lymphocytes (%) (Auto) 7L, Monocytes (%) (Auto) 5, Eosinophils (%) (Auto) 0, Basophils (%) (Auto) 1, Neutrophils # (Auto) 2.0, Lymphocytes # (Auto) 0.2L, Monocytes # (Auto) 0.2, Eosinophils # (Auto) 0.0, Basophils # (Auto) 0.0, Immature Granulocyte # (Auto) 0.9H, Percent Immature Platelet Fraction 3.5, Sodium Level 138, Potassium Level 3.6, Chloride Level 105, Carbon Dioxide Level 23, Anion Gap 10, Blood Urea Nitrogen 12, Creatinine 0.77, Estimat Glomerular Filtration Rate 98, BUN/Creatinine Ratio 16, Glucose Level 107H, Calcium Level 8.2L, Corrected Calcium 8.9, Total Bilirubin 0.7, Aspartate Amino Transf (AST/SGOT) 18, Alanine Aminotransferase (ALT/SGPT) 40, Alkaline Phosphatase 97, Total Protein 5.4L, Albumin 3.1L Microbiology 03/21/23 Urine Culture - Final, Complete NO GROWTH 03/21/23 Blood Culture - Preliminary, Resulted Assessment/Plan Assessment/Plan Assess & Plan/Chief Complaint 1. Sepsis based upon criteria -receiving IV fluids -Monitoring CBC -blood culture no growth to date 03/24 -urine culture no growth 2. Right lower lobe pneumonia -Sputum culture ordered but does not appear to be collected -Receiving gentamicin and piperacillin/tazo -official chest x-ray report pending from this morning 03/24 -sputum culture to be collected this morning to exclude atypicals -He continues on piperacillin/tazo 3. Hypoxic -4 L currently nasal cannula 4. Pancytopenia -Monitoring and he is receiving tbo-filgrastim daily 03/24 -White blood cell count this morning 3.3 5. Covid 19 -He was concerned about side effects of paxlovid 03/24 -he was started on Paxlovid yesterday, and will reassess tomorrow whether to continue 6. History of lymphoma status post bone marrow transplant -Dr. Mcallister in consultation VIVIEN STOCKTON MD Mar 24, 2023 07:23
[2023-03-24] MEDS: NIRMATRELVIR/RITONAVIR (PAXLOVID) TABLET PO SCH ×2 (08:10→21:36)
[2023-03-24] MEDS: ANTACID SUSPENSION 30 ML UDC PO PRN (08:10)
[2023-03-24] MEDS: dexAMETHasone INJ 10 MG/ML 1 ML VIAL IV SCH (08:11)
[2023-03-24] MEDS: PROPRANOLOL 40 MG PO SCH (08:11)
--- NOTE | 2023-03-24 08:34 | Diagnostic Imaging Report ---
EXAMINATION: Chest 1 view HISTORY: Chest pain. COMPARISON: 03/23/2023 FINDINGS: Right port catheter tip terminates in the superior vena cava. Multifocal airspace opacities in the right lung. No pneumothorax. No pleural effusion. No change from prior exam. Heart size is normal. IMPRESSION: 1. Unchanged multifocal right-sided airspace opacities suggestive of pneumonia. Dictated by: Dictated on workstation # [id number]
[2023-03-24] MEDS: TBO-FILGRASTIM 480 MCG/0.8 ML (GRANIX) SQ SCH (09:56)
[2023-03-24] MEDS: VANCOMYCIN 1 GM/NS 250 ML IVPB IV SCH ×4 (09:57→21:35)
[2023-03-25] VITALS (16 sets, daily range): BP systolic 94–126; BP diastolic 62–83
[2023-03-25] MEDS: PIPERACILLIN/Tazobactam 4.5 GM in NS (IVPB) 100 ML 100 ML IV SCH ×3 (02:06→17:59)
[2023-03-25] MEDS: RT-ALBUTEROL HFA 8.5 GM INHALER IH SCH ×6 (02:57→22:07)
[2023-03-25 04:51] LABS: BASOPHILS % (AUTO) 1 % (0-10); EOSINOPHILS % (AUTO) 0 % (0-10)
[2023-03-25 04:53] LABS: HEMATOCRIT 27 % (40-54); HEMOGLOBIN 8.8 g/dL (13.3-17.7); LYMPHOCYTES # (AUTO) 0.2 10^3/uL (1.0-4.0); LYMPHOCYTES % (AUTO) 6 % (12-44); MEAN CORPUSCULAR HEMOGLOBIN 30 pg (25-34); MEAN CORPUSCULAR HGB CONC 33 g/dL (32-36); MEAN CORPUSCULAR VOLUME 93 fL (80-99); MEAN PLATELET VOLUME 11.4 fL (9.0-12.2); MONOCYTES # (AUTO) 0.2 10^3/uL (0.0-1.0); MONOCYTES % (AUTO) 8 % (0-12); NEUTROPHILS # (AUTO) 1.7 10^3/uL (1.8-7.8); NEUTROPHILS % (AUTO) 63 % (42-75); PLATELET COUNT 61 10^3/uL (130-400); WHITE BLOOD COUNT 2.8 10^3/uL (4.3-11.0)
[2023-03-25 05:08] LABS: ALBUMIN 3.1 GM/DL (3.2-4.5); BILIRUBIN,TOTAL 0.7 MG/DL (0.1-1.0); CREATININE SERUM 0.74 MG/DL (0.60-1.30); POTASSIUM 3.4 MMOL/L (3.6-5.0); TOTAL PROTEIN 5.2 GM/DL (6.4-8.2)
--- NOTE | 2023-03-25 07:36 | Progress Note ---
Subjective Date Seen by a Provider: Mar 25, 2023 Time Seen by a Provider: 07:00 Subjective/Events-last exam patient continues to report no labored breathing. He has been using incentive spirometer with some success. He is currently on nasal cannula oxygen at 56 L. With deep inspiration his saturations are in the upper 90 percentile but will drop to lower 90 percentile with circuit walker breathing. Objective Exam Vital Signs Date Time Temp Pulse Resp B/P (MAP) Pulse Ox O2 Delivery O2 Flow Rate FiO2 03/25/23 06:00 52 20 123/70 (87) 98 Nasal Cannula 6.00 03/25/23 04:00 67 35 119/82 (94) 95 Nasal Cannula 6.00 03/25/23 04:00 36.8 03/25/23 02:57 96 Nasal Cannula 6.00 03/25/23 02:00 67 26 112/68 (83) 88 Nasal Cannula 6.00 03/25/23 01:00 60 03/25/23 00:00 36.6 03/25/23 00:00 64 32 120/69 (86) 94 Nasal Cannula 6.00 03/24/23 22:00 66 14 120/70 (93) 89 Nasal Cannula 6.00 03/24/23 21:51 88 Nasal Cannula 5.00 03/24/23 21:00 94 Nasal Cannula 5.00 03/24/23 20:00 36.6 03/24/23 20:00 65 31 99/63 (80) 92 Nasal Cannula 5.00 03/24/23 19:00 77 03/24/23 18:20 94 Nasal Cannula 5.00 03/24/23 18:00 72 18 108/84 (92) 91 Nasal Cannula 5.00 03/24/23 17:00 73 20 109/63 (78) 92 Nasal Cannula 5.00 03/24/23 16:00 72 22 107/77 (87) 95 Nasal Cannula 5.00 03/24/23 15:00 71 20 117/74 (88) 97 Nasal Cannula 5.00 03/24/23 14:42 93 Nasal Cannula 3.00 03/24/23 14:00 74 25 125/79 (94) 90 Nasal Cannula 5.00 03/24/23 13:00 84 25 131/78 (95) 90 Nasal Cannula 5.00 03/24/23 12:02 64 03/24/23 12:00 36.4 03/24/23 12:00 61 25 115/69 (84) 90 Nasal Cannula 5.00 03/24/23 11:04 Nasal Cannula 3.00 03/24/23 11:00 68 22 123/77 (92) 90 Nasal Cannula 5.00 03/24/23 10:00 72 22 98/69 (79) 88 Nasal Cannula 5.00 03/24/23 09:00 68 27 102/57 (72) 92 Nasal Cannula 5.00 03/24/23 08:00 95 Nasal Cannula 5.00 03/24/23 08:00 36.5 78 20 122/73 (89) 95 Nasal Cannula 5.00 03/24/23 07:38 97 Nasal Cannula 3.00 I & O 03/25/23 07:00 Intake Total 2600 ml Output Total 3640 ml Balance -1040 ml Capillary Refill : Less Than 3 Seconds General Appearance: No Apparent Distress Respiratory: Chest Non Tender, Rales (Still detected in the right base but overall breath sounds do appear improved) Cardiovascular: Regular Rate, Rhythm Neurologic/Psychiatric: Alert, Oriented x3 Skin: Normal Color Results Lab Laboratory Tests 03/25/23 04:03: White Blood Count 2.8L, Red Blood Count 2.90L, Hemoglobin 8.8L, Hematocrit 27L, Mean Corpuscular Volume 93, Mean Corpuscular Hemoglobin 30, Mean Corpuscular Hemoglobin Concent 33, Red Cell Distribution Width 15.1H, Platelet Count 61L, Mean Platelet Volume 11.4, Immature Granulocyte % (Auto) 23, Neutrophils (%) (Auto) 63, Lymphocytes (%) (Auto) 6L, Monocytes (%) (Auto) 8, Eosinophils (%) (A uto) 0, Basophils (%) (Auto) 1, Neutrophils # (Auto) 1.7L, Lymphocytes # (Auto) 0.2L, Monocytes # (Auto) 0.2, Eosinophils # (Auto) 0.0, Basophils # (Auto) 0.0, Immature Granulocyte # (Auto) 0.6H, Percent Immature Platelet Fraction 4.8, Sodium Level 139, Potassium Level 3.4L, Chloride Level 105, Carbon Dioxide Level 23, Anion Gap 11, Blood Urea Nitrogen 13, Creatinine 0.74, Estimat Glomerular Filtration Rate 99, BUN/Creatinine Ratio 18, Glucose Level 122H, Calcium Level 8.0L, Corrected Calcium 8.7, Total Bilirubin 0.7, Aspartate Amino Transf (AST/SGOT) 15, Alanine Aminotransferase (ALT/SGPT) 41, Alkaline Phosphatase 90, Total Protein 5.2L, Albumin 3.1L Microbiology 03/24/23 Gram Stain - Final, Resulted 03/24/23 Sputum Culture, Resulted Pending 03/21/23 Urine Culture - Final, Complete NO GROWTH 03/21/23 Blood Culture - Preliminary, Resulted Assessment/Plan Assessment/Plan Assess & Plan/Chief Complaint 1. Sepsis based upon criteria -receiving IV fluids -Monitoring CBC -blood culture no growth to date 03/24 -urine culture no growth 03/25 -now off IV fluids and he is hydrating very well orally 2. Right lower lobe pneumonia -Sputum culture ordered but does not appear to be collected -Receiving gentamicin and piperacillin/tazo -official chest x-ray report pending from this morning 03/24 -sputum culture to be collected this morning to exclude atypicals -He continues on piperacillin/tazo 03/25 -sputum culture is now pending -check chest x-ray in the morning of March 26 3. Hypoxic -4 L currently nasal cannula 03/25 -monitoring his saturations carefully to ensure he is not decompensating. Clinically he appears not to be 4. Pancytopenia -Monitoring and he is receiving tbo-filgrastim daily 03/24 -White blood cell count this morning 3.3 03/25 -White count 2.8 this morning 5. Covid 19 -He was concerned about side effects of paxlovid 03/24 -he was started on Paxlovid yesterday, and will reassess tomorrow whether to continue 03/25 -Will continue with paxlovid 6. History of lymphoma status post bone marrow transplant -Dr. Mcallister in consultation VIVIEN STOCKTON MD Mar 25, 2023 07:36
[2023-03-25] MEDS: TBO-FILGRASTIM 480 MCG/0.8 ML (GRANIX) SQ SCH (08:38)
[2023-03-25] MEDS: PROPRANOLOL 40 MG PO SCH (08:39)
[2023-03-25] MEDS: NIRMATRELVIR/RITONAVIR (PAXLOVID) TABLET PO SCH ×2 (08:39→21:11)
[2023-03-25] MEDS: dexAMETHasone INJ 10 MG/ML 1 ML VIAL IV SCH (08:40)
[2023-03-25] MEDS: VANCOMYCIN 1 GM/NS 250 ML IVPB IV SCH ×4 (10:03→21:11)
[2023-03-26] VITALS (7 sets, daily range): BP systolic 104–122; BP diastolic 71–79
[2023-03-26] MEDS: RT-ALBUTEROL HFA 8.5 GM INHALER IH SCH ×6 (03:13→21:47)
[2023-03-26 04:38] LABS: BASOPHILS % (AUTO) 1 % (0-10); EOSINOPHILS % (AUTO) 0 % (0-10); MEAN CORPUSCULAR HEMOGLOBIN 31 pg (25-34)
[2023-03-26 04:40] LABS: HEMATOCRIT 28 % (40-54); HEMOGLOBIN 9.4 g/dL (13.3-17.7); LYMPHOCYTES # (AUTO) 0.2 10^3/uL (1.0-4.0); LYMPHOCYTES % (AUTO) 7 % (12-44); MEAN CORPUSCULAR HGB CONC 34 g/dL (32-36); MEAN CORPUSCULAR VOLUME 92 fL (80-99); MEAN PLATELET VOLUME 11.3 fL (9.0-12.2); MONOCYTES # (AUTO) 0.4 10^3/uL (0.0-1.0); MONOCYTES % (AUTO) 15 % (0-12); NEUTROPHILS # (AUTO) 1.7 10^3/uL (1.8-7.8); NEUTROPHILS % (AUTO) 56 % (42-75); PLATELET COUNT 54 10^3/uL (130-400)
[2023-03-26 05:11] LABS: ALBUMIN 3.1 GM/DL (3.2-4.5); POTASSIUM 3.5 MMOL/L (3.6-5.0)
[2023-03-26 05:12] LABS: CALCIUM 8.3 MG/DL (8.5-10.1)
[2023-03-26 05:14] LABS: TOTAL PROTEIN 5.3 GM/DL (6.4-8.2)
[2023-03-26 05:15] LABS: BILIRUBIN,TOTAL 0.9 MG/DL (0.1-1.0)
[2023-03-26 05:17] LABS: CREATININE SERUM 0.82 MG/DL (0.60-1.30)
--- NOTE | 2023-03-26 06:30 | Diagnostic Imaging Report ---
INDICATION: Lower respiratory infection Portable chest 4:33 AM Right IJ Port-A-Cath tip projects over the SVC. There is some alveolar consolidation in the right lung. Left lung is clear. There are no effusions or pneumothoraces. IMPRESSION: Alveolar consolidation in the central portion of the right lung, unchanged from 03/24/2023. Dictated by: Dictated on workstation # [id number]
--- NOTE | 2023-03-26 07:32 | Progress Note ---
Subjective Date Seen by a Provider: Mar 26, 2023 Time Seen by a Provider: 06:45 Subjective/Events-last exam patient reports feeling fine this morning. He is getting more energy back. He is able to ambulate in the room. He does not describe any significant shortness of breath. The cough is less. His oxygenation levels have been in the 90s and his nasal cannula oxygen varies between 3 and 5 over the last 24 hours. Objective Exam Vital Signs Date Time Temp Pulse Resp B/P (MAP) Pulse Ox O2 Delivery O2 Flow Rate FiO2 03/26/23 06:41 Nasal Cannula 3.00 03/26/23 06:36 95 Nasal Cannula 3.00 03/26/23 04:00 57 28 118/71 (87) 97 Nasal Cannula 6.00 03/26/23 03:13 95 Nasal Cannula 5.00 03/26/23 01:00 60 03/26/23 00:00 56 27 122/72 (89) 97 Nasal Cannula 6.00 03/25/23 22:07 96 Nasal Cannula 5.00 03/25/23 20:33 91 Nasal Cannula 5.00 03/25/23 20:00 85 22 121/78 (92) 93 Nasal Cannula 6.00 03/25/23 19:00 72 03/25/23 18:50 96 Nasal Cannula 5.00 03/25/23 18:00 66 8 120/80 (93) 90 Nasal Cannula 6.00 03/25/23 17:00 67 20 115/79 (91) 92 Nasal Cannula 6.00 03/25/23 16:00 65 15 115/83 (94) 90 Nasal Cannula 6.00 03/25/23 15:00 67 20 126/79 (95) 92 Nasal Cannula 6.00 03/25/23 14:39 99 Nasal Cannula 6.00 03/25/23 14:10 77 21 90 Nasal Cannula 6.00 03/25/23 13:00 64 40 125/75 (92) 96 Nasal Cannula 6.00 03/25/23 13:00 64 03/25/23 12:00 67 122/76 (91) 90 Nasal Cannula 6.00 03/25/23 11:00 66 31 124/81 (95) 96 Nasal Cannula 6.00 03/25/23 10:37 95 Nasal Cannula 6.00 03/25/23 10:00 62 24 120/62 (81) 96 Nasal Cannula 6.00 03/25/23 09:00 91 Nasal Cannula 6.00 03/25/23 09:00 66 15 94/79 (84) 93 Nasal Cannula 6.00 03/25/23 08:00 57 23 120/68 (85) 93 Nasal Cannula 6.00 03/25/23 07:31 90 Nasal Cannula 6.00 I & O 03/26/23 07:00 Intake Total 1950 ml Output Total 2600 ml Balance -650 ml Capillary Refill : Less Than 3 Seconds General Appearance: No Apparent Distress Neck: Supple Respiratory: Rales (Are less prominent in the right lower lung, otherwise his lungs are clear) Cardiovascular: Regular Rate, Rhythm Gastrointestinal: soft Neurologic/Psychiatric: Alert, Oriented x3, No Motor/Sensory Deficits Skin: Normal Color Results Lab Laboratory Tests 03/26/23 04:17: White Blood Count 3.0L, Red Blood Count 3.06L, Hemoglobin 9.4L, Hematocrit 28L, Mean Corpuscular Volume 92, Mean Corpuscular Hemoglobin 31, Mean Corpuscular Hemoglobin Concent 34, Red Cell Distribution Width 14.9H, Platelet Count 54L, Mean Platelet Volume 11.3, Immature Granulocyte % (Auto) 22, Neutrophils (%) (Auto) 56, Lymphocytes (%) (Auto) 7L, Monocytes (%) (Auto) 15H, Eosinophils (%) (Auto) 0, Basophils (%) (Auto) 1, Neutrophils # (Auto) 1.7L, Lymphocytes # (Auto) 0.2L, Monocytes # (Auto) 0.4, Eosinophils # (Auto) 0.0, Basophils # (Auto) 0.0, Immature Granulocyte # (Auto) 0.7H, Percent Immature Platelet Fraction 5.7, Sodium Level 137, Potassium Level 3.5L, Chloride Level 102, Carbon Dioxide Level 25, Anion Gap 10, Blood Urea Nitrogen 16, Creatinine 0.82, Estimat Glomerular Filtration Rate 96, BUN/Creatinine Ratio 20, Glucose Level 114H, Calcium Level 8.3L, Corrected Calcium 9.0, Total Bilirubin 0.9, Aspartate Amino Transf (AST/SGOT) 14, Alanine Aminotransferase (ALT/SGPT) 40, Alkaline Phosphatase 90, Total Protein 5.3L, Albumin 3.1L Microbiology 03/24/23 Gram Stain - Final, Resulted 03/24/23 Sputum Culture - Preliminary, Resulted Usual upper respiratory dandy 03/21/23 Urine Culture - Final, Complete NO GROWTH 03/21/23 Blood Culture - Preliminary, Resulted Procedures [facility], [place] NAME: SHANELLE HERNANDEZ [facility] REC#: [id number] PT STATUS: ADM IN : 1955 PHYSICIAN: VIVIEN STOCKTON MD ADMIT DATE: 03/21/23/ICU Signed Date of Exam:03/26/23 CHEST 1 VIEW, AP/PA ONLY INDICATION: Lower respiratory infection Portable chest 4:33 AM Right IJ Port-A-Cath tip projects over the SVC. There is some alveolar consolidation in the right lung. Left lung is clear. There are no effusions or pneumothoraces. IMPRESSION: Alveolar consolidation in the central portion of the right lung, unchanged from 03/24/2023. Dictated by: Dictated on workstation # [id number] Dict: 03/26/2326 Trans: 03/26/2355 [facility] [id number] Interpreted by: SHANTELLE CARRANZA MD Electronically signed by: SHANTELLE CARRANZA MD 03/26/23 0655 Assessment/Plan Assessment/Plan Assess & Plan/Chief Complaint 1. Sepsis based upon criteria -receiving IV fluids -Monitoring CBC -blood culture no growth to date 03/24 -urine culture no growth 03/25 -now off IV fluids and he is hydrating very well orally 2. Right lower lobe pneumonia -Sputum culture ordered but does not appear to be collected -Receiving gentamicin and piperacillin/tazo -official chest x-ray report pending from this morning 03/24 -sputum culture to be collected this morning to exclude atypicals -He continues on piperacillin/tazo 03/25 -sputum culture is now pending -check chest x-ray in the morning of March 2603/26 -Zosyncontinues as well as vancomycin -Clinically he appears to be improving at least with regards to his overall status. 3. Hypoxic -4 L currently nasal cannula 03/25 -monitoring his saturations carefully to ensure he is not decompensating. Clinically he appears not to be 03/26 -nasal cannula by oxygen slightly less over the last 24 hours. -On March 25 I spoke with Dania Marin MD his slate splitting supervisor in [place]. She reported he may possibly need to be sent home with oxygen when he is dismissed. -Recommendation was for remdesivir instead of Paxlovid if available. 4. Pancytopenia -Monitoring and he is receiving tbo-filgrastim daily 03/24 -White blood cell count this morning 3.3 03/25 -White count 2.8 this morning 5. Covid -He was concerned about side effects of paxlovid 03/24 -he was started on Paxlovid yesterday, and will reassess tomorrow whether to c ontinue 03/25 -Will continue with paxlovid 03/26 -on March 25 I also spoke with his oncologist Dr. Baumann. She had thought per haps checking his total immunoglobin levels would be a good idea. If his total immunoglobin is less than 400, give IV IG 6. History of lymphoma status post bone marrow transplant -Dr. Mcallister in consultation VIVIEN STOCKTON MD Mar 26, 2023 07:32
[2023-03-26] MEDS: NIRMATRELVIR/RITONAVIR (PAXLOVID) TABLET PO SCH (08:25)
[2023-03-26] MEDS: PROPRANOLOL 40 MG PO SCH (08:26)
[2023-03-26] MEDS: TBO-FILGRASTIM 480 MCG/0.8 ML (GRANIX) SQ SCH (08:27)
[2023-03-26] MEDS: dexAMETHasone INJ 10 MG/ML 1 ML VIAL IV SCH (08:27)
[2023-03-26] MEDS ORDERED: NS IV NR (10:00)
[2023-03-26] MEDS ORDERED: REMDESIVIR IV NR (10:00)
[2023-03-26] MEDS: VANCOMYCIN 1 GM/NS 250 ML IVPB IV SCH ×4 (10:19→21:50)
[2023-03-26] MEDS: ANTACID SUSPENSION 30 ML UDC PO PRN (12:50)
[2023-03-27] VITALS: BP 110/69
[2023-03-27] MEDS: RT-ALBUTEROL HFA 8.5 GM INHALER IH SCH ×6 (02:42→21:58)
[2023-03-27 04:00] VITALS: BP 106/64
[2023-03-27 05:25] LABS: EOSINOPHILS % (AUTO) 0 % (0-10); MEAN CORPUSCULAR HGB CONC 33 g/dL (32-36); WHITE BLOOD COUNT 3.8 10^3/uL (4.3-11.0)
[2023-03-27 05:27] LABS: BASOPHILS % (AUTO) 1 % (0-10); HEMATOCRIT 29 % (40-54); HEMOGLOBIN 9.6 g/dL (13.3-17.7); LYMPHOCYTES # (AUTO) 0.3 10^3/uL (1.0-4.0); LYMPHOCYTES % (AUTO) 7 % (12-44); MEAN CORPUSCULAR HEMOGLOBIN 30 pg (25-34); MEAN CORPUSCULAR VOLUME 92 fL (80-99); MEAN PLATELET VOLUME 12.4 fL (9.0-12.2); MONOCYTES # (AUTO) 0.5 10^3/uL (0.0-1.0); MONOCYTES % (AUTO) 12 % (0-12); NEUTROPHILS # (AUTO) 2.9 10^3/uL (1.8-7.8); NEUTROPHILS % (AUTO) 77 % (42-75); PLATELET COUNT 41 10^3/uL (130-400)
[2023-03-27 05:36] LABS: POTASSIUM 3.9 MMOL/L (3.6-5.0)
[2023-03-27 05:38] LABS: CALCIUM 8.2 MG/DL (8.5-10.1)
[2023-03-27 05:39] LABS: TOTAL PROTEIN 5.1 GM/DL (6.4-8.2)
[2023-03-27 05:41] LABS: BILIRUBIN,TOTAL 0.6 MG/DL (0.1-1.0)
[2023-03-27 05:43] LABS: CREATININE SERUM 0.75 MG/DL (0.60-1.30)
[2023-03-27 08:00] VITALS: BP 113/72
[2023-03-27] MEDS: TBO-FILGRASTIM 480 MCG/0.8 ML (GRANIX) SQ SCH (09:00)
[2023-03-27] MEDS: REMDESIVIR IV SCH (09:29)
[2023-03-27] MEDS: dexAMETHasone INJ 10 MG/ML 1 ML VIAL IV SCH (09:29)
[2023-03-27] MEDS: NS IV SCH (09:29)
[2023-03-27] MEDS: PIPERACILLIN/Tazobactam 4.5 GM in NS (IVPB) 100 ML 100 ML IV SCH ×2 (09:30→17:53)
[2023-03-27] MEDS: PROPRANOLOL 40 MG PO SCH (09:30)
[2023-03-27] MEDS: IMMUNE GLOBULIN,GAMMA 200 ML IV SCH ×2 (15:16→17:11)
--- NOTE | 2023-03-27 15:20 | Physical Therapy Evaluation ---
PT Evaluation-General Medical Diagnosis Admission Date Mar 21, 2023 at 20:34 Medical Diagnosis: COVID Onset Date: Mar 26, 2023 Therapy Diagnosis Therapy Diagnosis: Decreased endurance Precautions Precautions/Isolations: Airborne Isolation, Droplet Isolation, Fall Prevention, Standard Precautions Weight Bear Status Right Lower Extremity: Right Full Weight Bearing Left Lower Extremity: Left Full Weight Bearing Referral Physician: Dr. Villegas Reason for Referral: Evaluation/Treatment Medical History Reviewed History: Yes Social History Home: Multilevel Current Living Status: Spouse Entry Into Home: Stairs With Railing PT Steps Into Home: 4 PT Steps Inside Home: 6 Prior Prior Level of Function SCALE: Activities may be completed with or without assistive devices. 0-Iyvitrfheq-iunvzhd completes the activity by him/herself with no assistance from a helper. 5-Set-up or Clean-up Assistance-helper sets up or cleans up; patient completes activity. [place] assists only prior to or following the activity. 4-Supervision or Touching Assistance-helper provides verbal cues and/or touching/steadying and/or contact guard assistance as patient completes activity. Assistance may be provided throughout the activity or intermittently. 3-Partial/Moderate Assistance-helper does LESS THAN HALF the effort. [place] lift s, holds or supports trunk or limbs, but provides less than half the effort. 2-Substantial/Maximal Assistance-helper does MORE THAN HALF the effort. [place] lifts or holds trunk or limbs and provides more than half the effort. 9-Xxqmbycub-jslrwt does ALL the effort. Patient does none of the effort to complete the activity. Or, the assistance of 2 or more helpers is required for the patient to complete the activity. If activity was not attempted, code reason: 7-Patient Refused. 9-Not Applicable-not attempted and the patient did not perform the activity before the current illness, exacerbation or injury. 10-Not Attempted due to Environmental Limitations-(lack of equipment, weather restraints, etc.). 88-Not Attempted due to Medical Conditions or Safety Concerns. Bed Mobility: 6 Transfers (B,C,W/C): 6 Gait: 6 Stairs: 6 Indoor Mobility (Ambulation): Independent Stairs: Independent Prior Devices Use: None PT Evaluation-Current Subjective Patient sitting at edge of bed, agreeable to treatment. Patient rates pain at 0/10 currently. Objective Patient Orientation: Person, Place, Time, Situation Attachments: Oxygen, IV ROM/Strength ROM Lower Extremities WFLs BLEs all planes Strength Lower Extremities 5/5 BLEs all planes except 4/5 for bilateral hip flexion Sensory Vision: Wears Glasses Hearing: Functional Sensation Right Lower Extremit: Intact Sensation Left Lower Extremity: Intact Transfers Roll Left to Right (QC): 6 Sit to Lying (QC): 6 Lying to Sitting/Side of Bed(Q: 6 Sit to Stand (QC): 6 Chair/Bxm-pg-Rbyyg Xfer(QC): 6 Toilet Transfer (QC): 6 Gait Does the Patient Walk?: Yes Mode of Locomotion: Walk Anticipated Mode of Locomotion: Walk Walk 10 feet (QC): 6 Walk 50 ft with 2 Turns(QC): 6 Walk 150 ft (QC): 6 Distance: 200' Gait Assistive Device: None Balance Sitting Static: Normal Sitting Dynamic: Normal Standing Static: Good Standing Dynamic: Good Assessment/Needs Patient currently at [facility]. He requires assistance for the O2 tubing, however was not on O2 prior to admission. Patient O2 sats maintained at 92-95% post gait. Patient ambulates 20 feet x 5 with no AD, with assistance for O2 tubing only; O2 sats measured while patient standing at mid-point. Patient sitting on edge of bed post treatment, in the room, all needs met, nursing notified. Rehab Potential: Good PT Residential Goals Residential Goals PT Residential Goals Time Frame: Apr 04, 2023 1 Step (curb) (QC): 6 4 Steps (QC): 6 12 Steps (QC): 6 PT Plan Problem List Problem List: Activity Tolerance Treatment/Plan Treatment Plan: Continue Plan of Care Treatment Plan: Gait, Safety Treatment Duration: Apr 07, 2023 Frequency: 6 times per week Estimated Hrs Per Day: .25 hour per day Patient and/or Family Agrees t: Yes Safety Risks/Education Patient Education: Gait Training, Transfer Techniques Teaching Recipient: Patient Teaching Methods: Demonstration, Discussion Response to Teaching: Verbalize Understanding, Return Demonstration Time Time In: 1447 Time Out: 1512 DATE: Mar 27, 2023 Total Billed Treatment Time: 25 Total Billed Treatment Visit, VAN BEGUM JOHN A PT Mar 27, 2023 15:20
[2023-03-27 16:00] VITALS: BP 126/81
[2023-03-27 20:00] VITALS: BP 102/60
[2023-03-28] VITALS: BP 103/68
[2023-03-28] MEDS: PIPERACILLIN/Tazobactam 4.5 GM in NS (IVPB) 100 ML 100 ML IV SCH ×2 (00:49→08:57)
[2023-03-28] MEDS: RT-ALBUTEROL HFA 8.5 GM INHALER IH SCH ×3 (02:54→10:20)
[2023-03-28 04:00] VITALS: BP 101/76
[2023-03-28 04:56] LABS: ALBUMIN 2.8 GM/DL (3.2-4.5)
[2023-03-28 04:58] LABS: CALCIUM 8.1 MG/DL (8.5-10.1)
[2023-03-28 04:59] LABS: TOTAL PROTEIN 5.5 GM/DL (6.4-8.2)
[2023-03-28 05:00] LABS: BASOPHILS % (AUTO) 1 % (0-10); MEAN CORPUSCULAR VOLUME 93 fL (80-99); WHITE BLOOD COUNT 3.2 10^3/uL (4.3-11.0)
[2023-03-28 05:01] LABS: BILIRUBIN,TOTAL 0.6 MG/DL (0.1-1.0)
[2023-03-28 05:02] LABS: EOSINOPHILS % (AUTO) 0 % (0-10); HEMATOCRIT 28 % (40-54); HEMOGLOBIN 9.3 g/dL (13.3-17.7); LYMPHOCYTES # (AUTO) 0.3 10^3/uL (1.0-4.0); LYMPHOCYTES % (AUTO) 8 % (12-44); MEAN CORPUSCULAR HEMOGLOBIN 31 pg (25-34); MEAN CORPUSCULAR HGB CONC 33 g/dL (32-36); MONOCYTES # (AUTO) 0.3 10^3/uL (0.0-1.0); MONOCYTES % (AUTO) 10 % (0-12); NEUTROPHILS # (AUTO) 2.5 10^3/uL (1.8-7.8); NEUTROPHILS % (AUTO) 76 % (42-75)
[2023-03-28 05:03] LABS: CREATININE SERUM 0.8 MG/DL (0.60-1.30)
[2023-03-28 05:06] LABS: PLATELET COUNT 35 10^3/uL (130-400); SMEAR SCAN COMMENT YES
--- NOTE | 2023-03-28 07:49 | Tele-ICU Progress Note ---
Progress Note video rounds completed 67 y/o male admitted with Covid PNA On dexamethasone, remdesivir and paxlovid Has pancytopenia WBC this am 3.2 and plts 35,000 so no chemical DVT px being given PE:appears comfortable lying in bed on nasal cannula O2 HR: 48 NSR BP: 101/76 O2 sat 95% no acute distress, no respiratory distress IMP: covid PNA PLan: continue current plansI am remotely monitoring this patient from another state. I am unable to do the bedside exam, and history/physical and pertinent information is taken from other notes in the computer and bedside staff. Time spent in review 15 minutes Focused Exam Height, Weight, BMI Height: '" Weight: lbs. oz. kg; 31.82 BMI Method: Labs Laboratory Tests 03/28/23 04:28 Results Results/Procedures Lab Laboratory Tests 03/27/23 05:18 03/28/23 04:28 Results Labs Labs Laboratory Tests 03/28/23 04:28: White Blood Count 3.2L, Red Blood Count 3.03L, Hemoglobin 9.3L, Hematocrit 28L, Mean Corpuscular Volume 93, Mean Corpuscular Hemoglobin 31, Mean Corpuscular Hemoglobin Concent 33, Red Cell Distribution Width 15.1H, Platelet Count 35*L, Mean Platelet Volume 12.0, Immature Granulocyte % (Auto) 5, Neutrophils (%) (Auto) 76H, Lymphocytes (%) (Auto) 8L, Monocytes (%) (Auto) 10, Eosinophils (%) (Auto) 0, Basophils (%) (Auto) 1, Neutrophils # (Auto) 2.5, Lymphocytes # (Auto) 0.3L, Monocytes # (Auto) 0.3, Eosinophils # (Auto) 0.0, Basophils # (Auto) 0.0, Immature Granulocyte # (Auto) 0.2H, Percent Immature Platelet Fraction 6.8, Sodium Level 137, Potassium Level 4.0, Chloride Level 104, Carbon Dioxide Level 25, Anion Gap 8, Blood Urea Nitrogen 20H, Creatinine 0.80, Estimat Glomerular Filtration Rate 96, BUN/Creatinine Ratio 25, Glucose Level 120H, Calcium Level 8.1L, Corrected Calcium 9.1, Total Bilirubin 0.6, Aspartate Amino Transf (AST/SGOT) 17, Alanine Aminotransferase (ALT/SGPT) 45, Alkaline Phosphatase 78, Total Protein 5.5L, Albumin 2.8L, Smear Scan YES Microbiology 03/24/23 Gram Stain - Final, Complete 03/24/23 Sputum Culture - Final, Complete Usual upper respiratory dandy 03/21/23 Urine Culture - Final, Complete NO GROWTH 03/21/23 Blood Culture - Final, Complete CHAIM YUSUF MD Mar 28, 2023 07:49
--- NOTE | 2023-03-28 08:17 | Progress Note ---
Subjective Date Seen by a Provider: Mar 27, 2023 Time Seen by a Provider: 06:50 Subjective/Events-last exam The patient reports feeling fine. He still has a slight cough but not too bad. He slept pretty well last night. Objective Exam Vital Signs Date Time Temp Pulse Resp B/P (MAP) Pulse Ox O2 Delivery O2 Flow Rate FiO2 03/28/23 07:00 53 03/28/23 06:51 96 Nasal Cannula 2.00 03/28/23 04:00 56 34 101/76 (84) 97 Nasal Cannula 2.00 03/28/23 02:54 94 Nasal Cannula 4.00 03/28/23 01:00 54 03/28/23 00:00 36.3 52 25 103/68 (80) 95 Nasal Cannula 2.00 03/27/23 21:58 94 Nasal Cannula 4.00 03/27/23 20:49 97 Nasal Cannula 2.00 03/27/23 20:30 Nasal Cannula 2.00 03/27/23 20:00 80 33 102/60 (74) 95 Nasal Cannula 4.00 03/27/23 19:00 76 13 97 Nasal Cannula 4.00 03/27/23 19:00 67 03/27/23 18:54 97 Nasal Cannula 4.00 03/27/23 16:00 78 27 126/81 (109) 98 Nasal Cannula 4.00 03/27/23 15:21 36.1 03/27/23 14:46 98 Nasal Cannula 4.00 03/27/23 12:30 64 03/27/23 12:00 73 28 93 Nasal Cannula 4.00 03/27/23 09:24 96 Nasal Cannula 4.00 I & O 03/28/23 07:00 Intake Total 1450 ml Output Total 2800 ml Balance -1350 ml Capillary Refill : Less Than 3 Seconds General Appearance: No Apparent Distress Respiratory: Lungs Clear (Without any significant rales noted in the right lower base) Cardiovascular: Regular Rate, Rhythm Gastrointestinal: normal bowel sounds Extremity: Normal Capillary Refill Neurologic/Psychiatric: Alert, Oriented x3 Results Lab Laboratory Tests 03/28/23 04:28: White Blood Count 3.2L, Red Blood Count 3.03L, Hemoglobin 9.3L, Hematocrit 28L, Mean Corpuscular Volume 93, Mean Corpuscular Hemoglobin 31, Mean Corpuscular Hemoglobin Concent 33, Red Cell Distribution Width 15.1H, Platelet Count 35*L, Mean Platelet Volume 12.0, Immature Granulocyte % (Auto) 5, Neutrophils (%) (Auto) 76H, Lymphocytes (%) (Auto) 8L, Monocytes (%) (Auto) 10, Eosinophils (%) (Auto) 0, Basophils (%) (Auto) 1, Neutrophils # (Auto) 2.5, Lymphocytes # (Auto) 0.3L, Monocytes # (Auto) 0.3, Eosinophils # (Auto) 0.0, Basophils # (Auto) 0.0, Immature Granulocyte # (Auto) 0.2H, Percent Immature Platelet Fraction 6.8, Sodium Level 137, Potassium Level 4.0, Chloride Level 104, Carbon Dioxide Level 25, Anion Gap 8, Blood Urea Nitrogen 20H, Creatinine 0.80, Estimat Glomerular Filtration Rate 96, BUN/Creatinine Ratio 25, Glucose Level 120H, Calcium Level 8.1L, Corrected Calcium 9.1, Total Bilirubin 0.6, Aspartate Amino Transf (AST/SGOT) 17, Alanine Aminotransferase (ALT/SGPT) 45, Alkaline Phosphatase 78, Total Protein 5.5L, Albumin 2.8L, Smear Scan YES Microbiology 03/24/23 Gram Stain - Final, Complete 03/24/23 Sputum Culture - Final, Complete Usual upper respiratory dandy 03/21/23 Urine Culture - Final, Complete NO GROWTH 03/21/23 Blood Culture - Final, Complete Assessment/Plan Assessment/Plan Assess & Plan/Chief Complaint 1. Sepsis based upon criteria -receiving IV fluids -Monitoring CBC -blood culture no growth to date 03/24 -urine culture no growth 03/25 -now off IV fluids and he is hydrating very well orally 2. Right lower lobe pneumonia -Sputum culture ordered but does not appear to be collected -Receiving gentamicin and piperacillin/tazo -official chest x-ray report pending from this morning 03/24 -sputum culture to be collected this morning to exclude atypicals -He continues on piperacillin/tazo 03/25 -sputum culture is now pending -check chest x-ray in the morning of March 2603/26 -Zosyncontinues as well as vancomycin -Clinically he appears to be improving at least with regards to his overall status. 03/27 -continues on Zosyn and vanc -We will begin discharge planning 3. Hypoxic -4 L currently nasal cannula 03/25 -monitoring his saturations carefully to ensure he is not decompensating. Clinically he appears not to be 03/26 -nasal cannula by oxygen slightly less over the last 24 hours. -On March 25 I spoke with Dania Marin MD his automatic thread winder in [place]. She reported he may possibly need to be sent home with oxygen when he is dismissed. -Recommendation was for remdesivir instead of Paxlovid if available. 03/27 -his oxygenation status currently is at 2 L which is an improvement 4. Pancytopenia -Monitoring and he is receiving tbo-filgrastim daily 03/24 -White blood cell count this morning 3.3 03/25 -White count 2.8 this morning 03/27 -platelet counts 41K this a.m. 5. Covid 19 -He was concerned about side effects of paxlovid 03/24 -he was started on Paxlovid yesterday, and will reassess tomorrow whether to continue 03/25 -Will continue with paxlovid 03/26 -on March 25 I also spoke with his oncologist Dr. Baumann. She had thought perhaps checking his total immunoglobin levels would be a good idea. If his total immunoglobin is less than 400, give IV IG 03/27 -IG levels pending 6. History of lymphoma status post bone marrow transplant -Dr. Mcallister in consultation VIVIEN STOCKTON MD Mar 28, 2023 08:17
[2023-03-28] MEDS: PROPRANOLOL 40 MG PO SCH (08:56)
[2023-03-28] MEDS: NS IV SCH (08:57)
[2023-03-28] MEDS: REMDESIVIR IV SCH (08:57)
[2023-03-28] MEDS: TBO-FILGRASTIM 480 MCG/0.8 ML (GRANIX) SQ SCH (08:57)
[2023-03-28] MEDS: dexAMETHasone INJ 10 MG/ML 1 ML VIAL IV SCH (08:57)
--- NOTE | 2023-03-28 09:09 | Physical Therapy Daily Note ---
PT Daily Note-Current Subjective Pt. seated at EOB, readily agrees to PT. States he is feeling much better. Pain Section J - Health Conditions 1. Rarely or not at all 2. Occasionally 3. Frequently 4. Almost constantly 8. Unable to answer Pain Effect on Sleep: 1 Pain Interference with Therapy: 1 Pain Interference w/Day-to-Day: 1 Mental Status Patient Orientation: Person, Place, Time, Situation Attachments: Oxygen 2L Transfers SCALE: Activities may be completed with or without assistive devices. 7-Wybinsqkgo-fjegxzj completes the activity by him/herself with no assistance from a helper. 5-Set-up or Clean-up Assistance-helper sets up or cleans up; patient completes activity. [place] assists only prior to or following the activity. 4-Supervision or Touching Assistance-helper provides verbal cues and/or touching/steadying and/or contact guard assistance as patient completes activity. Assistance may be provided throughout the activity or intermittently. 3-Partial/Moderate Assistance-helper does LESS THAN HALF the effort. [place] lifts, holds or supports trunk or limbs, but provides less than half the effort. 2-Substantial/Maximal Assistance-helper does MORE THAN HALF the effort. [place] lifts or holds trunk or limbs and provides more than half the effort. 4-Uwlssbyvc-xwkoeo does ALL the effort. Patient does none of the effort to complete the activity. Or, the assistance of 2 or more helpers is required for the patient to complete the activity. If activity was not attempted, code reason: 7-Patient Refused. 9-Not Applicable-not attempted and the patient did not perform the activity before the current illness, exacerbation or injury. 10-Not Attempted due to Environmental Limitations-(lack of equipment, weather restraints, etc.). 88-Not Attempted due to Medical Conditions or Safety Concerns. Sit to Stand (QC): 6 Weight Bearing Right Lower Extremity: Right Full Weight Bearing Left Lower Extremity: Left Full Weight Bearing Gait Training Does the Patient Walk?: Yes Distance: 2 x 100 ft Gait Assistive Device: None Therapist giving minimal assistance only with oxygen tubing. Treatments gait training Assessment Current Status: Good Progress Pt. is progressing very well. He ambulates (I) with O2 at 2L. Pt. does have slight drop in O2 sats to 88-89% with walking but returns >90% with brief seated rest and deep breathing. Pt. is motivated to increase activity level and we discussed exercises to complete near bedside in addition to walking in room as nursing is available. Pt. returned to bedside, breakfast set up and all needs met. 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
[2023-03-28 14:05] VITALS: BP 101/76
--- NOTE | 2023-03-28 21:35 | Discharge Summary ---
Diagnosis/Chief Complaint Date of Admission Mar 21, 2023 at 20:34 Date of Discharge Mar 28, 2023 at 14:05 Discharge Date: Mar 28, 2023 Admission Diagnosis Admission Diagnosis 1. Sepsis 2. Right lower lobe pneumonia 3. Hypoxic 4. Pancytopenia 5. Covid 19 6. History of lymphoma status post bone marrow transplant Discharge Diagnosis 1. Sepsis 2. Right lower lobe pneumonia 3. Hypoxic 4. Pancytopenia 5. Covid 19 6. History of lymphoma status post bone marrow transplant Reason Hospital Visit Patient is 67-year-old male with past medical history of lymphoma status post bone marrow transplant about a year ago who presented to the emergency department due to hypoxia and fever. He reports that he had COVID about 5 weeks ago and had actually done relatively well with it but over the past few days has started to feel worse. His son who is a nurse here checked his oxygen saturation and found it to be in the upper 60s prompting him to seek evaluation in the emergency department. Last week as an outpatient he had been diagnosed with a right lower lobe pneumonia and started on Augmentin but did not require oxygen at that time. He was found to meet sepsis criteria and blood pressures were marginal so he was admitted to the ICU. This morning her reports feeling better. He is still testing COVID-positive and we did discuss potential treatment with Paxlovid given his history of being on rituximab but he declines this. He states he is ready about hepatic side effects from Paxlovid and he would prefer not to take it. Discharge Summary Hospital Course Hospital Course 1. Sepsis based upon criteria -receiving IV fluids -Monitoring CBC -blood culture no growth to date 03/24 -urine culture no growth 03/25 -now off IV fluids and he is hydrating very well orally 2. Right lower lobe pneumonia -Sputum culture ordered but does not appear to be collected -Receiving gentamicin and piperacillin/tazo -official chest x-ray report pending from this morning 03/24 -sputum culture to be collected this morning to exclude atypicals -He continues on piperacillin/tazo 03/25 -sputum culture is now pending -check chest x-ray in the morning of March 2603/26 -Zosyncontinues as well as vancomycin -Clinically he appears to be improving at least with regards to his overall status. 03/27 -continues on Zosyn and vanc -We will begin discharge planning 3. Hypoxic -4 L currently nasal cannula 03/25 -monitoring his saturations carefully to ensure he is not decompensating. Clinically he appears not to be 03/26 -nasal cannula by oxygen slightly less over the last 24 hours. -On March 25 I spoke with Dania Marin MD his rn recovery in [place]. She reported he may possibly need to be sent home with oxygen when he is dismissed. -Recommendation was for remdesivir instead of Paxlovid if available. 03/27 -his oxygenation status currently is at 2 L which is an improvement 4. Pancytopenia -Monitoring and he is receiving tbo-filgrastim daily 03/24 -White blood cell count this morning 3.3 03/25 -White count 2.8 this morning 03/27 -platelet counts 41K this a.m. 5. Covid 19 -He was concerned about side effects of paxlovid 03/24 -he was started on Paxlovid yesterday, and will reassess tomorrow whether to continue 03/25 -Will continue with paxlovid 03/26 -on March 25 I also spoke with his oncologist Dr. Baumann. She had thought perhaps checking his total immunoglobin levels would be a good idea. If his total immunoglobin is less than 400, give IV IG 03/27 -IG levels pending 6. History of lymphoma status post bone marrow transplant -Dr. Mcallister in consultation Labs Laboratory Tests 03/26/23 04:17: White Blood Count 3.0L, Red Blood Count 3.06L, Hemoglobin 9.4L, Hematocrit 28L, Red Cell Distribution Width 14.9H, Platelet Count 54L, Lymphocytes (%) (Auto) 7L , Monocytes (%) (Auto) 15H, Neutrophils # (Auto) 1.7L, Lymphocytes # (Auto) 0.2L , Immature Granulocyte # (Auto) 0.7H, Potassium Level 3.5L, Glucose Level 114H, Calcium Level 8.3L, Total Protein 5.3L, Albumin 3.1L, Immunoglobulin G 398L, Immunoglobulin A 37.6L, Immunoglobulin M 11L 03/27/23 05:18: White Blood Count 3.8L, Red Blood Count 3.15L, Hemoglobin 9.6L, Hematocrit 29L, Red Cell Distribution Width 15.1H, Platelet Count 41L, Lymphocytes (%) (Auto) 7L , Lymphocytes # (Auto) 0.3L, Glucose Level 110H, Calcium Level 8.2L, Total Protein 5.1L, Albumin 3.0L, Mean Platelet Volume 12.4H, Neutrophils (%) (Auto) 77H, Blood Urea Nitrogen 20H 03/28/23 04:28: White Blood Count 3.2L, Red Blood Count 3.03L, Hemoglobin 9.3L, Hematocrit 28L, Red Cell Distribution Width 15.1H, Platelet Count 35*L, Lymphocytes (%) (Auto) 8L, Lymphocytes # (Auto) 0.3L, Immature Granulocyte # (Auto) 0.2H, Glucose Level 120H, Calcium Level 8.1L, Total Protein 5.5L, Albumin 2.8L, Neutrophils (%) (Auto) 76H, Blood Urea Nitrogen 20H Procedures None. Discharge Physical Examination Allergies: Coded Allergies: naproxen (Verified Allergy, Unknown, 03/21/23) Vitals & I&Os Vital Signs Date Time Temp Pulse Resp B/P (MAP) Pulse Ox O2 Delivery O2 Flow Rate FiO2 03/28/23 14:05 36.4 64 27 101/76 92 Nasal Cannula 2.00 Discharge Home Medications Reviewed and agree with Discharge Medication list on patient's Discharge Instruction sheet Instructions to Patient/Family Please see electronic discharge instructions given to patient. VIVIEN STOCKTON MD Mar 28, 2023 21:34
== END 2023-03-28 14:05 | disposition home or self-care (01) | DRG 871 ==
LOC: EDUNIT# 18:19 → ER 18:22 → ICU 20:34
PROVIDERS: ADMIT Family Medicine; ATTEND Family Medicine
DX: A41.89 Other specified sepsis (principal); J12.82 Pneumonia due to coronavirus disease 2019; U07.1 COVID-19; J96.01 Acute respiratory failure with hypoxia; D61.818 Other pancytopenia; Z94.81 Bone marrow transplant status; R65.20 Severe sepsis without septic shock; Z85.72 Personal history of non-Hodgkin lymphomas; G25.0 Essential tremor; H54.7 Unspecified visual loss; Z87.891 Personal history of nicotine dependence; Z85.46 Personal history of malignant neoplasm of prostate; Z90.79 Acquired absence of other genital organ(s)
CPT/HCPCS: 36415; 71045; 80053; 80202; 81000; 82784; 82805; 83605; 85007; 85025; 85027; 85379; 85610; 85730; 87040; 87070; 87088; 87205; 87636; 94640; 94761; 96361; 96374; 96375

== ENCOUNTER → 2023-04-17 | Outpatient (CLI) | payer MEDICARE, OTHER ==
[~2023-04-17] MED LIST changes: +AMOX1TAB12 PO; +AZIT250T12 PO; -CATHETER FLUSH 10 ML SYR IV PRN; -HOLD METFORMIN - RECEIVED CONTRAST 20 ML VIAL IV SCH; -IOHEXOL 350 MG/ML 100 ML (OMNIPAQUE 350) VIAL IV ONE; -NS 100 ML (IVPB) BAG IV ONE; +PROP40TA5 PO
--- NOTE | 2023-04-17 10:37 | Diagnostic Imaging Report ---
INDICATION: Right lower lobe pneumonia follow-up. COMPARISON: 03/26/2023 TECHNIQUE: 2 radiographs of the chest dated 04/17/2023. FINDINGS: Interval removal of previously noted right-sided Port-A-Cath. The cardiac silhouette is within normal limits in size. No significant pulmonary vascular congestion. The left lung is clear. Improved though minimal persisting predominantly interstitial opacities within the medial right lower lung. No new focal pulmonary opacity. No pleural effusion. No pneumothorax. Anterior wedging within the lower thoracic spine with focal kyphosis. Scattered osseous degenerative changes. [place] left curvature of the visualized thoracolumbar spine. IMPRESSION: Improved opacities with minimal persisting opacities within the right lung base. This is felt to relate to improving pneumonia/infiltrate. Recommend additional follow-up radiographs. Interval removal right-sided Port-A-Cath. Additional stable chronic findings as above. Dictated by: Dictated on workstation # [id number]
== END ==
LOC: RAD 10:15
PROVIDERS: ATTEND Family Medicine
DX: J18.9 Pneumonia, unspecified organism (principal)
CPT/HCPCS: 71046